=== PATIENT | female | born 1985 | race Caucasian/White ===

== ENCOUNTER 2021-06-12 13:59 | Outpatient (REF) | payer BC, OTHER, SELFPAY ==
[2021-06-12 19:27] LABS: HCT 36.3 % (36.0-46.0); HGB 11.1 g/dL (11.2-15.7); MCH 27.9 pg (27.0-33.0); MCHC 30.6 % (32.0-36.0); MCV 91.2 fL (80-95); MPV 10.1 fL (8.0-11.0); Platelet Count 389 10^3/uL (130-400); RBC 3.98 10^6/uL (3.93-5.22); RDW 16.1 % (11.7-14.6); RDW-SD 53.9 fL; WBC 4.05 10^3/uL (4.4-10.8)
[2021-06-12 20:05] LABS: BUN 12 mg/dL (7-18); CREATININE 0.8 mg/dL (0.55-1.02); Chloride 105 mmol/L (98-107); FREE T4 0.79 ng/dL (0.76-1.46); Glucose 94 mg/dL (74-106); Potassium 4.4 mmol/L (3.5-5.1); Sodium 142 mmol/L (136-145)
== END 2021-06-12 14:00 | disposition home or self-care (01) ==
LOC: NCHCN 13:59
PROVIDERS: Visit Provider Physician Assistant
DX: R53.83 Other fatigue (principal)
CPT/HCPCS: 80048; 85027; 84439; 84443

== ENCOUNTER 2022-06-17 08:39 | Inpatient (IN) | payer OTHER, SELFPAY ==
[2022-06-17] VITALS (16 sets, daily range): BP systolic 110–129; BP diastolic 70–77; PULSE 82–117; RESP 16–28; TEMP 36.2–36.8; O2SAT 86–100
--- NOTE | 2022-06-17 | DI.US_ITS ---
APPROVED REPORT EXAM: Comprehensive 2D, Doppler, and color-flow Echocardiogram Patient Location: ER Land Survey Technician: Farheen Barone RDCS (AE) Indications: Tachycardia, DVT, Suspected PE Other Information Study Quality: Adequate Conclusion Normal left ventricular wall thickness and chamber size. Estimated ejection fraction is 60 to 65%. Wall motion is normal Normal right ventricular size and systolic function Both atria are normal in size There is no structural or hemodynamically significant valvular disease Normal estimated right ventricular systolic pressure, 25.5 mmHg Wall motion Left Ventricle The left ventricle is normal size. The left ventricular systolic function is normal. The left ventric ular ejection fraction is within the normal range. There is normal left ventricular wall thickness. T here is normal LV segmental wall motion. There is no ventricular septal defect visualized. LVEF is 60 -65%. Right Ventricle The right ventricle is normal size. The right ventricular systolic function is normal. The RVSP is 25 .5 mmHg. Atria The left atrium size is normal. The right atrium size is normal. The interatrial septum is intact wit h no evidence for an atrial septal defect. Atrial septal aneurysm is present. Aortic Valve The aortic valve is normal in structure. Aortic valve is trileaflet. There is no aortic valvular sten osis. No aortic regurgitation is present. Mitral Valve The mitral valve is normal in structure. No evidence of mitral valve stenosis. Mild mitral regurgitat ion. Tricuspid Valve The tricuspid valve is normal in structure. There is no tricuspid valve stenosis. Mild tricuspid regu rgitation. Pulmonic Valve The pulmonary valve is normal in structure. There is no pulmonic valvular stenosis. There is no pulmo jeannie valvular regurgitation. Great Vessels The aortic root is normal in size. The ascending aorta is normal in size. Aortic arch is normal in ca liber. IVC is normal in size and collapses >50% with inspiration. Pericardium There is no pericardial effusion. 2D Dimensions IVSD d PLAX 1.02 cm F: 0.6-1.0 LV Vol A2C d MOD 100.0 mL LVPW d PLAX 1.03 cm F: 0.6 - 1.0 LV Vol A4C d MOD 119.5 mL LVID d PLAX 5.00 cm F: 3.8 - 5.2 LA vol/ BSA A2C s A-L 15.0 mL/m2 LVDs 3.40 cm F: 2.2 - 3.5 LA vol/ BSA A4C s A-L 19.4 mL/m2 Ao Root d 2.95 cm F: 2.7 - 3.3 LA Vol/ BSA Biplane s A-L 17.9 mL/m2 RA Area A4C 10.97 cm2 LA Area A4C s MOD 14.86 cm2 RA Vol/ BSA A4C s A-L 12.1 mL/m2 LA Area A2C s MOD 12.45 cm2 Ao Asc Diam d 3.19 cm F: 2.3 - 3.1 LV EF A4C MOD 59.6 % LV EF Teichholz 59.6 % LV EF A2C MOD 65.2 % LVEF (Martínez's) 62.37 % F: 54 - 74 LV EF Biplane MOD 62.4 % LV Volume 81.41 mL F: 46 - 106 SV 68.10 mL LV Volume Index 40.10 mL/m2 F: 29 - 61 SV Index 33.44 mL/m2 LV Vol Biplane MOD 109.2 mL FS 31.80 % M-Mode TAPSE 2.56 cm (M/F) >1.7 LV Diastology MV E' medial 0.098 (>0.07 m/s) E/A Ratio 1.2 LV E/e MED 7.85 (<14) MV E Vmax 0.77 (0.4-1.3 m/s) MV E' lateral 0.143 (>0.1 m/s) MV A Vmax 0.65 (0.4-1.3 m/s) LV E/e LAT 5.35 (<14) MV E/A Ratio 1.17 MV E/E' medial 7.90 MV E/E' lateral 5.38 Aortic Valve LVOT Area 2.98 cm2 AoV Area Vmax 2.32 cm2 LVOT Vmax 1.16 m/s AoV Area/ BSA (Vmax) 1.14 cm2/m2 LVOT Mean Ronny. 0.74 m/s VISH Mean Ronny. 1.97 cm2 LVOT Peak Grad 5.4 mmHg VISH Mean Ronny. Index 0.97 cm2/m2 LVOT Mean Grad 2.6 mmHg LVOT VTI 0.210 m LVOT Diam s 1.90 cm AoV Vmax 1.49 m/s Velocity Ratio 0.77 AoV Mean Ronny. 1.11 m/s AoV Peak Grad 8.9 mmHg LVOT SV 62.43 mL AoV Mean Grad 5.4 mmHg AoV VTI 0.287 m AoV Area VTI 2.18 cm2 AoV Area/ BSA (VTI) 1.07 cm/m2 Mitral Valve MV DT 278 (160-240 msec) MV PHT 81 msec MV Area PHT 2.73 cm2 MV VTI 0.258 m MV Area VTI 2.42 (4.0-6.0 cm2) Pulmonary Valve PV Vmax 0.90 (0.5-1.5 m/s) RVOT Peak Gr. 2.15 mmHg PV Peak Grad 3.3 mmHg RVOT Mean Gr. 1.15 mmHg PV Mean Grad 1.9 mmHg RVOT VTI 0.163 m PV VTI 0.173 m RVOT Vmax 0.73 m/s Tricuspid Valve TR Peak Grad 22.4 mmHg TR Vmax 2.37 m/s RA Pressure 3.00 mmHg RVSP (TR) 25.5 mmHg
--- NOTE | 2022-06-17 09:00 | DI.US_ITS ---
Exam(s) US LOWER EXTREMITY VENOUS LT EXAM: US LOWER EXTREMITY VENOUS LT CLINICAL HISTORY: medial groin pain, hx of DVT TECHNIQUE: Left lower extremity venous ultrasound performed using grayscale, color-flow, and spectra l Doppler analysis. COMPARISON: No exams were available for comparison FINDINGS: Hypoechoic thrombus is seen involving the common femoral vein, femoral vein, popliteal vein, profundu s and into the posterior tibialis veins. The greater saphenous vein is patent. There is no evidence of a Mcelroy cyst. The soft tissues are unremarkable. IMPRESSION: 1. Extensive left lower extremity thrombus extending from the common femoral vein to the posterior ti bialis veins. 2. Results of this exam have been verbally communicated with provider. DATA REPOSITORY:
--- NOTE | 2022-06-17 09:00 | DI.RAD_ITS ---
Exam(s) XR HIP LT COMPLETE AP PELVIS EXAM: XR HIP LT COMPLETE AP PELVIS CLINICAL HISTORY: Chr back pain, Now medial thigh pain. TECHNIQUE: 2D digital imaging was performed of the left hip. Three views were obtained. AP pelvis and lateral left hip views were obtained. COMPARISON: No exams were available for comparison FINDINGS: BONES: No acute fracture is present. No bony destructive lesion is seen. JOINTS: No dislocation present. Postsurgical changes are seen in the lumbar spine and right sacroilia c joint. There are mild degenerative changes seen in the sacroiliac joints bilaterally. SOFT TISSUE: There is an IUD in the pelvis. IMPRESSION: No acute abnormality. DATA REPOSITORY: RADIATION DOSE DELIVERED:
--- NOTE | 2022-06-17 09:06 | ED.GENADUL_ITS ---
Discharge Plan Disposition Patient Disposition: [facility] INPATIENT Condition: Stable Discharge Details Chief Complaint: Vascular Clinical Impression: DVT (deep venous thrombosis) Admit Date/Time: 06/17/22 10:52 Admit Provider: Olimpia Sosa Attending Provider: Olimpia Sosa Primary Care Provider: Unknown,Unknown ED Provider: Satya Stout Medical Decision Making 37-year-old female presents from home with complaint of days of progressive left groin pain. Similar to previous DVT which she had in association with . No chest pain or shortness of breath. She does have longstanding lumbar and SI joint pain for which she follows with pain specialist. Denies any new strain or injury. She is not had a fever, chest pain or shortness of breath. No rash or discoloration. Stress to ER anxious and slightly tachycardic. Oxygenating normally. She is tender throughout the medial thigh. She is tender in her L-spine as well as sciatic notch. With her history of DVT this is certainly within the differential diagnosis as well as SI joint or L-spine or hip pathology. Patient IV access established, given small aliquot of Ativan. Given ketorolac and fluids. She is referred for x-ray, ultrasound, laboratory analysis. Patient's INR is 1.0. Her ultrasound reveals lower extremity thrombus extending from the common femoral to the posterior tibialis veins. Her D-dimer is consistent with this and elevated at 3524. She has a massive DVT with ongoing pain in the leg. I feel she is best served by admission for anticoagulation and observation. Lab Data Lab results reviewed: Yes I reviewed the patient's lab results. Labs: Laboratory Results - last 24 hr 06/17/22 06/17/22 06/17/22 09:09 09:09 09:09 WBC 7.98 RBC 4.03 Hgb 11.4 Hct 35.6 L MCV 88 MCH 28.3 MCHC 32.0 RDW 14.9 H Plt Count 346 MPV 9.2 Immature Gran % 0.4 Neutrophils % 73.8 Lymphocytes % 15.7 Monocytes % 6.3 Eosinophils % 3.3 Basophils % 0.5 Nucleated RBC % 0.0 Absolute Neutrophils 5.90 Absolute Lymphocytes 1.25 Absolute Monocytes 0.50 Absolute Eosinophils 0.26 Absolute Basophils 0.04 PT 10.2 INR 1.0 APTT 23.8 D-Dimer 3524 H Sodium 137 Potassium 3.2 L Chloride 98 Carbon Dioxide 30.9 Anion Gap 8.1 BUN 15 Creatinine 0.9 Estimated GFR/1.73 m2 >= 60.00 Glucose 112 H Calcium 9.0 Magnesium 2.0 Total Bilirubin 0.6 AST 10 L ALT 21 Alkaline Phosphatase 92 Total Protein 8.7 H Albumin 4.1 HPI General Mode of arrival: ambulatory . Date/Time Provider Initiated Documentation: 06/17/22 08:40 . Limitations to Documentation: no limitations . Information obtained by: patient . History of Present Illness 37 year old F presents to the emergency department with the chief complaint of Left groin and thigh pain, described as moderate and similar to prior episodes, Quality is described as dull and constant, and is localized to the left and lower extremity. Patient reports no radiation. Patient started experiencing this day(s) and it has been intermittent. No relieving factors improve symptom(s), Movement worsens symptoms . Patient notes denies chest pain, rash and shortness of breath. Patient did receive the following treatments prior to arrival, other (Took morning medications) Related Data Home Medications Medication Instructions Recorded Confirmed duloxetine 30 mg capsule,delayed 30 mg PO DAILY 06/17/22 06/17/22 release duloxetine 60 mg capsule,delayed 60 mg PO DAILY 06/17/22 06/17/22 release gabapentin 600 mg tablet 600 mg PO QID 06/17/22 06/17/22 oxycodone 20 mg tablet 20 mg PO Q4H PRN 06/17/22 06/17/22 tizanidine 4 mg tablet 4 mg PO Q8H PRN 06/17/22 06/17/22 Allergies Allergy/AdvReac Type Severity Reaction Status Date / Time No Known Allergies Allergy Unverified 06/17/22 08:51 General Stated Complaint: Vascular NARESH: 3 Review of Systems Narrative: 6 systems reviewed and otherwise neg PFSH All Active Problems (Updated 06/17/22 @ 13:57 by Satya Stout MD) DVT (deep venous thrombosis) (Chronic) Social History Smoking/Tobacco Use Status: Never Smoking risk assessment performed?: Yes Alcohol Intake: current Alcohol Intake frequency: a few times a month Drug use: Occasionally Substance use type: marijuana Do you feel safe at home: Yes Do you feel safe in your relationship?: Yes Exam Narrative Exam Narrative: GEN: awake, alert, oriented 3. Pleasant, well groomed, interactive. HEAD: Normocephalic, atraumatic ENT: Mucous membranes moist, oropharynx unremarkable, External ear exam unremarkable EYES: PERRL, EOMI NECK: Full ROM, no ELIF, no menigismus CHEST/RESP: Nontender, clear to auscultation bilateral, no wheeze/rhonchi/rales CARDIOVASCULAR: RRR, no murmur, rub declan. 2+ Rad pulse bilateral ABDOMEN: Soft, nontender, no mass. +Bowel sounds Back: Moderately diffuse L-spine tenderness without step-off or deformity. Left lateral hip tender to palpation. Tenderness throughout the left medial thigh. Palpable femoral pulse. EXT: Full ROM, no edema, no rash. No pain with internal or external rotation of the hip. Neuro: Grossly normal neurologic exam, conversant, interactive. Psych: Speech fluent, thoughts congruent, affect normal Course Vital Signs Vital signs: Vital Signs Temperature 36.7 C 06/17/22 08:44 Pulse 117 H 06/17/22 08:44 Respiratory Rate 17 06/17/22 08:44 Blood Pressure 114/77 06/17/22 08:44 Pulse Oximetry 96 06/17/22 08:44 Temperature 36.7 C 06/17/22 08:44 Temperature Source Temporal Artery Scan 06/17/22 08:44 Pulse 117 H 06/17/22 08:44 Respiratory Rate 17 06/17/22 08:44 Respiratory Effort Non-Labored 06/17/22 08:57 Respiratory Depth Normal 06/17/22 08:57 Respiratory Pattern Normal 06/17/22 08:57 Blood Pressure 114/77 06/17/22 08:44 Blood Pressure Position Sitting 06/17/22 08:44 Pulse Oximetry 96 06/17/22 08:44 Oxygen Delivery Method Room Air 06/17/22 08:44 Oxygen Flow Rate 0 06/17/22 08:44 Pain Level 8 06/17/22 08:57 PAWSS Have you Been Recently Intoxicated or Drunk Within the Last 30 days?: No Have you Ever Experienced Previous Episodes of Alcohol Withdrawal?: No Have you ever Experienced Withdrawal Seizures?: No Have you ever Experienced Delirium Tremens(DT)s?: No Have you ever undergone Alcohol Rehabilitation Treatment (i.e, inpt ot outpatient treatment programs)?: No Have you ever Experienced Blackouts?: No Have you ever Combined Alcohol with other Downers within the last 90 days?: No Have you ever Combined Alcohol with any other Substance of Abuse during the last 90 days?: No Result: 0
[2022-06-17] MEDS: LORazepam 20 MG/10 ML VIAL IVP ×2 (09:13→22:47)
[2022-06-17] MEDS: Ketorolac 15 MG/ML VIAL IVP (09:13)
[2022-06-17] MEDS: Normal Saline 1,000 ML 1000 ML IV (09:14)
[2022-06-17 09:17] LABS: Abs Immature Grans 0.03 10^3/uL (0.0-0.06); Absolute Basophil Count 0.04 10^3/uL (0.0-0.2); Absolute Eosinophil Count 0.26 10^3/uL (0.0-0.7); Absolute Lymphocyte Count 1.25 10^3/uL (1.2-3.4); Basophils % 0.5; Eosinophils % 3.3; HCT 35.6 % (36.0-46.0); HGB 11.4 g/dL (11.2-15.7); Immature Grans % 0.4; Lymphocytes % 15.7; MCH 28.3 pg (27.0-33.0); MCV 88 fL (80-95); MPV 9.2 fL (8.0-11.0); Monocytes % 6.3; Neutrophils % 73.8; Platelet Count 346 10^3/uL (130-400); RBC 4.03 10^6/uL (3.93-5.22); RDW 14.9 % (11.7-14.6); RDW-SD 48.9 fL; WBC 7.98 10^3/uL (4.4-10.8)
[2022-06-17 09:35] LABS: ALT 21 U/L (14-59); AST 10 U/L (15-37); Albumin 4.1 g/dL (3.4-5.0); Alkaline Phosphatase 92 U/L (46-116); Anion Gap 8.1 mmol/L (3-11); BUN 15 mg/dL (7-18); Bilirubin, Total 0.6 mg/dL (0.2-1.0); CO2 30.9 mmol/L (21.0-32.0); CREATININE 0.9 mg/dL (0.55-1.02); Chloride 98 mmol/L (98-107); Glucose 112 mg/dL (74-106); Potassium 3.2 mmol/L (3.5-5.1); Sodium 137 mmol/L (136-145); Total Protein 8.7 g/dL (6.4-8.2)
[2022-06-17 09:42] LABS: PTT Activated 23.8 sec (21.0-27.5); Prothrombin Time 10.2 sec (9.3-11.0)
[2022-06-17 10:00] LABS: D-Dimer 3524 ng/mlFEU (<500)
--- NOTE | 2022-06-17 10:45 | DI.CT_ITS ---
Exam(s) CT CHEST PE CTA EXAM: CT CHEST PE CTA CLINICAL HISTORY: Massive DVT, tachycardia. TECHNIQUE: Imaging Protocol: Axial CT angiography was performed with multi-slice acquisition and mu lti-planar and/or 3D reconstructions. CONTRAST MATERIAL: Intravenous: Omnipaque 350 contrast volume:100 mL COMPARISON: No exams were available for comparison FINDINGS: Tracheobronchial tree: Patent where visualized. Pulmonary parenchyma: No consolidation or dominant measurable mass. Low lung volumes with dependent a telectasis. Pulmonary Arteries: No evidence of filling defect to suggest pulmonary emboli. Mediastinum and [place]: No dominant adenopathy or fluid collection. The esophagus is unremarkable. Visualized thyroid gland: Unremarkable. Pleura: No effusion or pneumothorax. Heart: The heart is not dilated. No coronary artery calcifications are seen. No pericardial effusion. There is no evidence of right heart strain Aorta: Thoracic aorta non-dilated. No evidence of dissection. Upper abdomen: Unremarkable. Soft tissues: Unremarkable. Bones: Within normal limits for the patient's age.There is a right convex curvature of the thoracic s pine. IMPRESSION: 1. No evidence of pulmonary embolism, thoracic aortic dissection or aneurysm. 2. Results of this exam have been verbally communicated with provider. RADIATION DOSE DELIVERED: 456.72mGy.cm Total DLP DATA REPOSITORY: All CT scans at this facility are submitted to the National Radiology Data Registry (NRDR) Dose Index Registry (DIR) with the [employer] (ACR). RADIATION OPTIMIZATION: All CT scans at this facility use at least one of these dose optimization te chniques: automated exposure control; mA and/or kV adjustment per patient size (includes targeted exa ms where dose is matched to clinical indication); or iterative reconstruction.
[2022-06-17] MEDS: Enoxaparin 100 MG/ML SYR SC ×2 (11:01→22:25)
[2022-06-17 11:05] LABS: Source Nasal/Nares
[2022-06-17 11:38] LABS: COVID-19 PCR Negative (Negative)
[2022-06-17 11:42] LABS: NT-proBNP 33 pg/mL (<300); Troponin I < 50 ng/L (<or=60)
[2022-06-17] MEDS: HYDROmorphone 2 MG/ML SYR 1 MG IVP (11:59)
[2022-06-17] MEDS: Omnipaque 350 MG/ML 100 ML BTL IJ (12:12)
[2022-06-17] MEDS: Potassium Chloride 20 MEQ TABCR 40 MEQ PO (13:07)
[2022-06-17] MEDS: Acetaminophen 325 MG TAB PO (13:07)
[2022-06-17 14:54] LABS: Troponin I < 50 ng/L (<or=60)
[2022-06-17] MEDS: Normal Saline Flush 10 ML SYR IVP ×3 (16:01→22:28)
[2022-06-17] MEDS: HYDROmorphone 2 MG/ML SYR IVP ×3 (16:02→22:26)
--- NOTE | 2022-06-17 16:41 | HPE_ITS ---
Date of service: 06/17/22 Time of Service: 16:41 Assessment and Plan Assessment and plan (1) DVT (deep venous thrombosis): Status: Chronic Assessment and plan: Pain, swelling to left leg. No difficulty breathing, no chest pain - enoxaparin (2) Pain: Status: Acute Assessment and plan: Left groin and leg is warm, tender; foot is pink, warm DP/PT palpable. Chronic use of oxycodone - dilaudid IV as needed (3) Anxiety: Status: Chronic Assessment and plan: Very anxious, usually takes xanax prn. Reassured, calm, quiet environment, lorazepam as needed. (4) Chronic back pain greater than 3 months duration: Status: Chronic Assessment and plan: Chronic back pain - sees pain specialists - continue home meds, hold oxy in lieu of dilaudid (5) Constipation due to opioid therapy: Status: Suspected Assessment and plan: On oxycodone for years, denies constipation at this time; bowel meds anderson and as needed. (6) Discharge planning issues: Status: Acute Assessment and plan: Plan to discharge home with no services History of Present Illness History of Present Illness Chief Complaint: Left groin and leg pain Narrative: This 37-year-old female presented to the [facility] emergency department with the chief complaint of 3 days of progressive left groin pain.? She reported this pain is similar to the pain she had with a previous DVT, years ago, in association with .?She denied chest pain or shortness of breath.? She does have longstanding lumbar and SI joint pain for which is followed by a pain specialist.? She denied any new strain or injury.? She has not had a fever, rash or discoloration. In the emergency department she appeared anxious and she was tachycardic, no hypoxia. She reported tenderness throughout the left medial thigh.? She also reported tenderness in her L-spine as well as sciatic notch, which is chronic. She was given Ativan, ketorolac and fluids in the emergency department. Patient's INR was 1.0.? Her ultrasound revealed a left lower extremity thrombus extending from the common femoral to the posterior tibialis veins.? Her D-dimer was 3524.? She has a massive DVT with ongoing pain in the leg.?She is placed on observaiton status on the medical surgical unit for anticoagulation and pain control. Discussed with Dr Sosa Review of Systems All systems reviewed & are unremarkable except as noted in HPI and below PFSH All Active Problems (Updated 06/19/22 @ 16:08 by Candice Leyva NP) Anemia (Chronic) Hypoxia (Acute) Headache (Acute) Chronic back pain greater than 3 months duration (Chronic) Anxiety (Chronic) Discharge planning issues (Acute) Pain (Acute) DVT (deep venous thrombosis) (Chronic) Social History Smoking/Tobacco Use Status: Never Smoking risk assessment performed?: Yes Alcohol Intake: current Alcohol Intake frequency: a few times a month Drug use: Occasionally Substance use type: marijuana Do you feel safe at home: Yes Do you feel safe in your relationship?: Yes Meds Allergies and Home Medications Allergies Allergy/AdvReac Type Severity Reaction Status Date / Time No Known Allergies Allergy Unverified 06/17/22 08:51 Home Medications Medication Instructions Recorded Confirmed Type duloxetine 30 mg capsule,delayed 30 mg PO DAILY 06/17/22 06/17/22 History release duloxetine 60 mg capsule,delayed 60 mg PO DAILY 06/17/22 06/17/22 History release gabapentin 600 mg tablet 600 mg PO QID 06/17/22 06/17/22 History oxycodone 20 mg tablet 20 mg PO Q4H PRN 06/17/22 06/17/22 History tizanidine 4 mg tablet 4 mg PO Q8H PRN 06/17/22 06/17/22 History alprazolam 0.25 mg tablet 0.25 mg PO BID PRN 06/19/22 06/19/22 History oxycodone 10 mg tablet,crush 10 mg PO Q12H 06/19/22 06/19/22 History resistant,extended release 12 hr (OxyContin) Exam Narrative Exam Narrative: Const General: no acute distress Nutritional Appearance: average body habitus [facility] Head: normocephalic Ears: external ears normal and no periauricular adenopathy General nose exam: nasal mucous membranes and turbinates normal Face and sinus: sinuses nontender Mouth: oropharynx normal and moist mucous membranes Teeth and gingiva: dentition normal Eyes General: appearance normal, both eyes and all related structures Pupils: PERRL Neck Neck: normal visual inspection and no lymphadenopathy Chest Chest: normal inspection of the chest Resp Effort & Inspection: normal respiratory effort Auscultation: no rales, no rhonchi and no wheezes Cardio Rate: tachycardic Rhythm: regular rhythm Heart Sounds: S1 normal, S2 normal and no murmurs Pulses: radial pulses present bilaterally GI Inspection: normal to inspection Palpation: soft Skin General skin exam: no rashes or lesions noted Neuro General: patient alert, patient awake and patient oriented x3 Extrem General: no clubbing, cyanosis or edema, left leg swollen, DP and PT palpable, foot warm, pink, dry. Strong poplateal pulse Psych Mental Status: mental status grossly normal, anxious Affect: normal affect Attitude: cooperative Results Labs Result diagrams: 06/20/22 06:20 06/18/22 06:37 Labs: Laboratory Results - last 24 hr 06/17/22 06/17/22 06/17/22 09:09 09:09 09:09 WBC 7.98 RBC 4.03 Hgb 11.4 Hct 35.6 L MCV 88 MCH 28.3 MCHC 32.0 RDW 14.9 H Plt Count 346 MPV 9.2 Immature Gran % 0.4 Neutrophils % 73.8 Lymphocytes % 15.7 Monocytes % 6.3 Eosinophils % 3.3 Basophils % 0.5 Nucleated RBC % 0.0 Absolute Neutrophils 5.90 Absolute Lymphocytes 1.25 Absolute Monocytes 0.50 Absolute Eosinophils 0.26 Absolute Basophils 0.04 PT 10.2 INR 1.0 APTT 23.8 D-Dimer 3524 H Sodium 137 Potassium 3.2 L Chloride 98 Carbon Dioxide 30.9 Anion Gap 8.1 BUN 15 Creatinine 0.9 Estimated GFR/1.73 m2 >= 60.00 Glucose 112 H Calcium 9.0 Magnesium 2.0 Total Bilirubin 0.6 AST 10 L ALT 21 Alkaline Phosphatase 92 Troponin I NT-Pro-B Natriuret Pep Total Protein 8.7 H Albumin 4.1 COVID-19 Source SARS-CoV-2 (PCR) 06/17/22 06/17/22 06/17/22 09:09 10:58 14:28 WBC RBC Hgb Hct MCV MCH MCHC RDW Plt Count MPV Immature Gran % Neutrophils % Lymphocytes % Monocytes % Eosinophils % Basophils % Nucleated RBC % Absolute Neutrophils Absolute Lymphocytes Absolute Monocytes Absolute Eosinophils Absolute Basophils PT INR APTT D-Dimer Sodium Potassium Chloride Carbon Dioxide Anion Gap BUN Creatinine Estimated GFR/1.73 m2 Glucose Calcium Magnesium Total Bilirubin AST ALT Alkaline Phosphatase Troponin I < 50 < 50 NT-Pro-B Natriuret Pep 33 Total Protein Albumin COVID-19 Source Nasal/Nares SARS-CoV-2 (PCR) Negative Last Vital Signs Temp 36.6 C 06/17/22 15:24 Pulse 94 H 06/17/22 15:42 Resp 24 06/17/22 15:24 BP 110/70 06/17/22 15:24 Pulse Ox 99 06/17/22 15:24 PAWSS Have you Been Recently Intoxicated or Drunk Within the Last 30 days?: No Have you Ever Experienced Previous Episodes of Alcohol Withdrawal?: No Have you ever Experienced Withdrawal Seizures?: No Have you ever Experienced Delirium Tremens(DT)s?: No Have you ever undergone Alcohol Rehabilitation Treatment (i.e, inpt ot outpatient treatment programs)?: No Have you ever Experienced Blackouts?: No Have you ever Combined Alcohol with other Downers within the last 90 days?: No Have you ever Combined Alcohol with any other Substance of Abuse during the last 90 days?: No Result: 0
[2022-06-17] MEDS: oxyCODONE 5 mg/Acetaminophen 325 mg TAB 1 TAB PO ×2 (17:24→21:49)
[2022-06-17] MEDS: Ondansetron 4 MG/2 ML VIAL IVP (17:52)
[2022-06-17] MEDS: Gabapentin 600 MG TAB PO ×2 (17:52→19:57)
[2022-06-17 23:27] LABS: Lab Add On Test DONE
[2022-06-18] VITALS (9 sets, daily range): BP systolic 94–110; BP diastolic 64–72; PULSE 77–100; RESP 16–21; TEMP 36–36.8; O2SAT 90–98
[2022-06-18] MEDS: Ondansetron 4 MG/2 ML VIAL IVP ×4 (03:38→18:11)
[2022-06-18] MEDS: HYDROmorphone 2 MG/ML SYR IVP ×6 (03:38→19:59)
[2022-06-18] MEDS: Normal Saline Flush 10 ML SYR IVP ×9 (03:39→21:28)
[2022-06-18] MEDS: LORazepam 20 MG/10 ML VIAL IVP ×3 (03:56→20:06)
[2022-06-18] MEDS: oxyCODONE 5 mg/Acetaminophen 325 mg TAB 1 TAB PO (07:40)
[2022-06-18 08:08] LABS: Abs Immature Grans 0.01 10^3/uL (0.0-0.06); Absolute Basophil Count 0.03 10^3/uL (0.0-0.2); Absolute Eosinophil Count 0.31 10^3/uL (0.0-0.7); Absolute Lymphocyte Count 1.36 10^3/uL (1.2-3.4); Absolute Monocyte Count 0.42 10^3/uL (0.1-0.8); Absolute Neutrophil Count 3.02 10^3/uL (1.2-6.7); Basophils % 0.6; HCT 32.3 % (36.0-46.0); HGB 9.9 g/dL (11.2-15.7); Immature Grans % 0.2; Lymphocytes % 26.4; MCH 27.8 pg (27.0-33.0); MCHC 30.7 % (32.0-36.0); MCV 91 fL (80-95); MPV 9.7 fL (8.0-11.0); Monocytes % 8.2; Neutrophils % 58.6; Platelet Count 314 10^3/uL (130-400); RBC 3.56 10^6/uL (3.93-5.22); RDW 15.1 % (11.7-14.6); RDW-SD 50.4 fL; WBC 5.15 10^3/uL (4.4-10.8)
[2022-06-18 08:31] LABS: Anion Gap 7.9 mmol/L (3-11); BUN 14 mg/dL (7-18); CO2 31.1 mmol/L (21.0-32.0); CREATININE 0.7 mg/dL (0.55-1.02); Calcium 8.6 mg/dL (8.5-10.1); Chloride 101 mmol/L (98-107); Glucose 91 mg/dL (74-106); Magnesium 2.3 mg/dL (1.8-2.4); Potassium 3.5 mmol/L (3.5-5.1); Sodium 140 mmol/L (136-145); TSH (W/Ref FT4) 7.05 uIU/mL (0.36-3.74)
[2022-06-18 08:49] LABS: FREE T4 1.12 ng/dL (0.76-1.46)
[2022-06-18] MEDS: Gabapentin 600 MG TAB PO ×4 (10:52→19:56)
[2022-06-18] MEDS: Docusate Sodium 100 MG CAP PO ×2 (10:52→19:57)
[2022-06-18] MEDS: Enoxaparin 100 MG/ML SYR SC ×2 (10:52→22:19)
[2022-06-18] MEDS: DULoxetine 30 MG CAP 90 MG PO (11:02)
--- NOTE | 2022-06-18 11:21 | INITIAL_ITS ---
- If Service Date Differs Date of service: 06/18/22 Time of Service: 11:21 Care Management Initial Assess REASON FOR HOSPITALIZATION:: acute extensive LLE DVT, PE PAST MEDICAL HISTORY/PAST SURGICAL HISTORY:: All Active Problems. Chronic back pain greater than 3 months duration (Chronic). Anxiety (Chronic). Discharge planning issues (Acute). Pain (Acute). DVT (deep venous thrombosis) (Chronic) PREVIOUS FUNCTIONAL STATUS/SOCIAL/FAMILY SUPPORTS:: Kayleigh lives in [place] with her , . She is indpendent with ADL's at baseline. CURRENT FUNCTIONAL STATUS:: When CM approached Kayleigh's room to visit, her SHOPPING INVESTIGATOR stated that she was not feeling well and did not want to be disturbed, therefore CM did not visit with her. Per provider, she will likely have a new prescription for Eliquis. CM will inquire about copay prior to discharge, and provide a coupon from [employer] if eligible. CM will continue to follow. ADVANCE DIRECTIVES:: Not on file. Has patient been provided with info about the portal/API?: Yes Did the patient sign up for the portal?: No CODE STATUS:: Full Code INSURANCE COVERAGE / FINANCIAL ISSUES:: [facility] CURRENT HOME/COMMUNITY SERVICES/EQUIPMENT:: None. PRIMARY CARE PHYSICIAN:: Unknown POTENTIAL DISCHARGE NEEDS:: PCP attachment for discharge follow up appointment. PATIENT/FAMILY EDUCATION NEEDS:: Review discharge instructions and limitations, discussion of self care needs including ask me three. ANTICIPATED BARRIERS TO DISCHARGE:: None identified. TRANSPORTATION:: Via private vehicle by her spouse. PLAN:: Kayleigh will return home when medically cleared. Her will drive her home via private vehicle. She will follow up with her PCP and discharge plan of care. CM will continue to follow.
--- NOTE | 2022-06-18 17:31 | PGE_ITS ---
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 she now has extensive DVT, will continue lovenox for now. have requested hematology work up results she had at [facility] in [facility], awaiting records. plan is to discharge to home with hematology follow up. ? to continue lovenox or if safe to use DOAC (2) Pain: Status: Acute Assessment and plan: Left groin and leg is warm, tender; foot is pink, warm DP/PT palpable. Chronic use of oxycodone - dilaudid IV as needed (3) Anxiety: Status: Chronic Assessment and plan: Very anxious, usually takes xanax prn. Reassured, calm, quiet environment, lorazepam as needed. (4) Chronic back pain greater than 3 months duration: Status: Chronic Assessment and plan: Chronic back pain - sees pain specialists - continue home meds, hold oxy in lieu of dilaudid (5) Constipation due to opioid therapy: Status: Suspected Assessment and plan: On oxycodone for years, denies constipation at this time; bowel meds anderson and as needed. (6) Discharge planning issues: Status: Acute Assessment and plan: Plan to discharge home with no services discussed with DR Sosa Subjective Subjective Patient reports: no new complaints, still having pain and afebrile Exam Const General: cooperative, comfortable and no acute distress Nutritional Appearance: overweight Orientation: alert, awake and oriented x3 HENCA Head: normal to inspection, normocephalic and atraumatic Mouth: oral mucosae normal Resp Effort & Inspection: normal respiratory effort Auscultation: clear to auscultation bilaterally Cardio Rate: regular rate Rhythm: regular rhythm GI Inspection: normal to inspection Palpation: soft Auscultation: normal bowel sounds Skin General skin exam: no rashes or lesions noted Neuro General: patient alert (sedate but arousable.), patient awake and patient oriented x3 Cognition: normal cognition Speech: speech normal Motor: muscle tone normal throughout Extrem General: normal to inspection, full ROM and edema Laterality: left Objective Last Vital Signs Temp 36.8 C 06/18/22 15:50 Pulse 84 06/18/22 15:50 Resp 16 06/18/22 15:50 BP 103/66 06/18/22 15:50 Pulse Ox 90 L 06/18/22 15:50 Laboratory Results - last 24 hr 06/17/22 06/18/22 06/18/22 09:09 06:37 06:37 WBC 5.15 RBC 3.56 L Hgb 9.9 L Hct 32.3 L MCV 91 MCH 27.8 MCHC 30.7 L RDW 15.1 H Plt Count 314 MPV 9.7 Immature Gran % 0.2 Neutrophils % 58.6 Lymphocytes % 26.4 Monocytes % 8.2 Eosinophils % 6.0 Basophils % 0.6 Nucleated RBC % 0.0 Absolute Neutrophils 3.02 Absolute Lymphocytes 1.36 Absolute Monocytes 0.42 Absolute Eosinophils 0.31 Absolute Basophils 0.03 Sodium 140 Potassium 3.5 Chloride 101 Carbon Dioxide 31.1 Anion Gap 7.9 BUN 14 Creatinine 0.7 Estimated GFR/1.73 m2 >= 60.00 Glucose 91 Calcium 8.6 Magnesium 2.3 TSH 7.05 H Free T4 1.12 Add-On Test Request DONE PAWSS Have you Been Recently Intoxicated or Drunk Within the Last 30 days?: No Have you Ever Experienced Previous Episodes of Alcohol Withdrawal?: No Have you ever Experienced Withdrawal Seizures?: No Have you ever Experienced Delirium Tremens(DT)s?: No Have you ever undergone Alcohol Rehabilitation Treatment (i.e, inpt ot outpatient treatment programs)?: No Have you ever Experienced Blackouts?: No Have you ever Combined Alcohol with other Downers within the last 90 days?: No Have you ever Combined Alcohol with any other Substance of Abuse during the last 90 days?: No Result: 0
[2022-06-18] MEDS: Acetaminophen 325 MG TAB PO (19:05)
[2022-06-18] MEDS: Warfarin 5 MG TAB PO (19:57)
[2022-06-18] MEDS: LORazepam 1 MG TAB PO (21:25)
[2022-06-19] VITALS (9 sets, daily range): BP systolic 103–113; BP diastolic 64–76; PULSE 75–104; RESP 17–19; TEMP 35.9–36.8; O2SAT 91–98
--- NOTE | 2022-06-19 | DI.CT_ITS ---
Exam(s) CT HEAD WO EXAM: CT HEAD WO CLINICAL HISTORY: worst headache ever while on anticoagulation. TECHNIQUE: Imaging Protocol: Axial computed tomography images with coronal and sagittal reformatted images were created and reviewed COMPARISON: No exams were available for comparison FINDINGS: There are no skull fractures nor fluid in the visualized paranasal sinuses. Small post inflammatory retention cysts noted in the posterior wall of the left maxillary sinus. No associated fluid level seen. There is no evidence of intracranial hemorrhage, mass effect, or shift of midline structures. There are no extra-axial fluid collections. The ventricles are not enlarged or shifted and there is no blo od within the ventricular system nor within the basal cisterns. IMPRESSION: No acute intracranial findings on this noninfused CT scan of the brain. RADIATION DOSE DELIVERED: 738.49mGy.cm Total DLP DATA REPOSITORY: All CT scans at this facility are submitted to the National Radiology Data Registry (NRDR) Dose Index Registry (DIR) with the [employer] (A[employer]). RADIATION OPTIMIZATION: All CT scans at this facility use at least one of these dose optimization te chniques: automated exposure control; mA and/or kV adjustment per patient size (includes targeted exa ms where dose is matched to clinical indication); or iterative reconstruction.
--- NOTE | 2022-06-19 | DI.CT_ITS ---
Exam(s) CT CHEST PE CTA EXAM: CT CHEST PE CTA CLINICAL HISTORY: hypoxia. TECHNIQUE: Imaging Protocol: CT angiography of the chest was performed using pulmonary embolus kale col. Multi planar reconstructions were performed. CONTRAST MATERIAL: Intravenous: Omnipaque 350 Contrast volume: 100 cc COMPARISON: CT CT CHEST PE CTA from 06/17/2022 FINDINGS: CHEST: PULMONARY ARTERIES: There are no intraluminal filling defects to suggest acute pulmonary emboli. LUNGS: No evidence of pulmonary infarction and no pleural effusions.. However, there are again noted increased relatively symmetrical markings throughout both lung birch, somewhat ground-glass in appe arance. MEDIASTINUM: There is no hilar nor mediastinal adenopathy. Visualized thyroid unremarkable. CARDIAC: Heart size is upper normal. There is no pericardial effusion.Caliber of the thoracic aorta is within normal limits. There is no significant shift of the interventricular septum. PARTIALLY VISUALIZED UPPERMOST ABDOMEN: No obvious findings OSSEOUS: No significant osseous lesions.. IMPRESSION: 1. No evidence of acute pulmonary emboli. No evidence of pulmonary infarction. 2. Extensive increased markings throughout both lung birch again noted, somewhat ground-glass in reshma earance, not associated with pleural effusions. Correlation with Covid testing recommended. 3. No intrathoracic adenopathy evident. RADIATION DOSE DELIVERED: 379.05mGy.cm Total DLP DATA REPOSITORY: All CT scans at this facility are submitted to the National Radiology Data Registry (NRDR) Dose Index Registry (DIR) with the [employer] (ACR). RADIATION OPTIMIZATION: All CT scans at this facility use at least one of these dose optimization te chniques: automated exposure control; mA and/or kV adjustment per patient size (includes targeted exa ms where dose is matched to clinical indication); or iterative reconstruction.
[2022-06-19] MEDS: Normal Saline Flush 10 ML SYR IVP ×4 (01:51→15:07)
[2022-06-19] MEDS: HYDROmorphone 2 MG/ML SYR IVP ×3 (01:52→08:30)
[2022-06-19] MEDS: Acetaminophen 325 MG TAB PO (04:54)
[2022-06-19 07:20] LABS: Abs Immature Grans 0.01 10^3/uL (0.0-0.06); Absolute Basophil Count 0.04 10^3/uL (0.0-0.2); Absolute Lymphocyte Count 1.19 10^3/uL (1.2-3.4); Absolute Monocyte Count 0.58 10^3/uL (0.1-0.8); Basophils % 0.7; Eosinophils % 6.9; HCT 29.6 % (36.0-46.0); HGB 9.6 g/dL (11.2-15.7); Immature Grans % 0.2; Lymphocytes % 20.4; MCH 28.8 pg (27.0-33.0); MCHC 32.4 % (32.0-36.0); MCV 89 fL (80-95); MPV 9.4 fL (8.0-11.0); Neutrophils % 61.8; Platelet Count 264 10^3/uL (130-400); RBC 3.33 10^6/uL (3.93-5.22); RDW 14.6 % (11.7-14.6); RDW-SD 47.8 fL; WBC 5.82 10^3/uL (4.4-10.8)
[2022-06-19 07:29] LABS: Prothrombin Time 10.1 sec (9.3-11.0)
[2022-06-19] MEDS: Ondansetron 4 MG/2 ML VIAL IVP (08:28)
[2022-06-19] MEDS: Docusate Sodium 100 MG CAP PO ×2 (08:32→20:33)
[2022-06-19] MEDS: Gabapentin 600 MG TAB PO ×3 (08:32→20:33)
[2022-06-19] MEDS: Rizatriptan 10 MG TAB PO (09:43)
[2022-06-19] MEDS: Enoxaparin 100 MG/ML SYR SC ×2 (09:43→22:44)
[2022-06-19] MEDS: Omnipaque 350 MG/ML 100 ML BTL IV (10:43)
[2022-06-19] MEDS: Normal Saline 1,000 ML 1000 ML IV (10:49)
[2022-06-19] MEDS: Methylnaltrexone 12 MG/0.6 ML VIAL SC (10:49)
[2022-06-19] MEDS: Prochlorperazine 10 MG/2 ML VIAL IVP (11:00)
[2022-06-19 11:08] LABS: Iron 27 ug/dL (50-170); Total Iron Binding Capacity 350 ug/dL (250-450); Transferrin Sat 8 % (15-50)
[2022-06-19 11:17] LABS: Folate 6.2 ng/mL (8.6-20.0)
[2022-06-19 11:35] LABS: Vitamin B12 300 pg/mL (193-986)
[2022-06-19 11:38] LABS: Source Nasal/Nares
--- NOTE | 2022-06-19 11:51 | PDOC.CMPRO ---
- If Service Date Differs Date of service: 06/19/22 Time of Service: 11:51 Care Management Progress Note S/O: Kayleigh was sitting up in bed when CM met with her. She reported that she is feeling much better this afternoon than she did earlier. She stated that per provider, she will likely be discharged tomorrow. She stated that she is living off the grid currently in [facility] and is working on gettting on the electric grid. Her and her are living in her aunt's house, which they are renovating slowly while living in it. She reported that she has supportive family in [place] who will assist her if needed. She also stated that her PCP is Dr. Galvan in [place]. She expressed that she is independent and does not anticipate requiring services upon discharge. CM will continue to follow. A: Kayleigh is a 37 year old female admitted to [facility] on 06/17/22 with acute LLE DVT. P: Kayleigh will return home when medically cleared. Her will drive her home via private vehicle. She will follow up with her PCP and discharge plan of care. CM will continue to follow.
[2022-06-19 12:13] LABS: COVID-19 PCR Negative (Negative)
[2022-06-19] MEDS: DULoxetine 30 MG CAP 90 MG PO (15:07)
[2022-06-19] MEDS: Folic Acid 1 MG TAB PO (15:07)
[2022-06-19] MEDS: IRON SUCROSE COMPLEX 300 MG in Normal Saline 250 ML 167 MG IVPB (15:08)
[2022-06-19] MEDS: oxyCODONE 10 MG TAB 20 MG PO ×2 (15:11→20:33)
--- NOTE | 2022-06-19 15:56 | PGE_ITS ---
Date of Service Date of service: 06/19/22 Time of Service: 15:56 Assessment and Plan Assessment and plan (1) Headache: Status: Acute Assessment and plan: CT head with no evidence of bleed or pathology better after apap, maxalt, compazine and fluids. (2) Hypoxia: Status: Acute Assessment and plan: suspected d/t hypoventilation d/t oversedation CTA repeated and negative to PE encourage cough and deep breath and incentive spirometer. wean oxygen as able. will stop IV diluadid and resume home medication stop ativan and resume home alprazolam. continue to closely monitor and adjust meds further if needed. (3) Anemia: Status: Chronic Assessment and plan: H&H stable. will need to continue monitoring while on full anticoagulation iron studies, b12 and folate levels. replete as needed. check stool OB (4) DVT (deep venous thrombosis): Status: Chronic Assessment and plan: discussed [place] with Dr Mack [place] [facility] advises to discharge on coumadin for INR goal 2-3, will continue to bridge with lovenox. she will follow up outpatient with hematology and anticoagulation clinic for coumadin management and duration of treatment (suspect will need intermediate designer anticoagulation) (5) Pain: Status: Acute Assessment and plan: Left groin and leg is warm, tender; foot is pink, warm DP/PT palpable. Chronic use of oxycodone, will resume home dosing (6) Anxiety: Status: Chronic Assessment and plan: will resume home xanax and monitor (7) Chronic back pain greater than 3 months duration: Status: Chronic Assessment and plan: Chronic back pain - sees pain specialists - continue home meds (8) Constipation due to opioid therapy: Status: Suspected Assessment and plan: On oxycodone for years, no BM since Friday so given relistor which was effective. continue to monitor. (9) Discharge planning issues: Status: Acute Assessment and plan: Plan to discharge home with no services discussed with DR Sosa Subjective Subjective Patient reports: no new complaints, voiding w/o difficulty, no bowel movement (since friday), nausea and afebrile; denies tolerating a regular diet or shortness of breath Interval history since last seen: patient sedate, arousable but difficulty maintaining eye contact. now with oxygen requirements. c/o headache not responsive to maxalt and apap. Exam Const General: cooperative, comfortable and no acute distress Nutritional Appearance: overweight Orientation: alert, awake and oriented x3 HENMT Head: normal to inspection, normocephalic and atraumatic Mouth: oral mucosae normal Resp Effort & Inspection: no respiratory distress, not tachypneic, no use of accessory muscles and other (depressed respiratory status, shallow) Auscultation: clear to auscultation bilaterally and diminished lung sounds bilaterally throughout Cardio Rate: regular rate Rhythm: regular rhythm GI Inspection: normal to inspection Palpation: soft Auscultation: normal bowel sounds Skin General skin exam: no rashes or lesions noted Neuro General: patient alert (sedate but arousable.), patient awake and patient oriented x3 Cognition: normal cognition Speech: speech normal Motor: muscle tone normal throughout Extrem General: normal to inspection, full ROM and edema Laterality: left Objective Last Vital Signs Temp 36.5 C 06/19/22 11:15 Pulse 90 06/19/22 11:15 Resp 17 06/19/22 11:15 BP 104/68 06/19/22 11:15 Pulse Ox 91 L 06/19/22 11:15 Laboratory Results - last 24 hr 06/19/22 06/19/22 06/19/22 07:08 07:08 07:08 WBC 5.82 RBC 3.33 L Hgb 9.6 L Hct 29.6 L MCV 89 MCH 28.8 MCHC 32.4 RDW 14.6 Plt Count 264 MPV 9.4 Immature Gran % 0.2 Neutrophils % 61.8 Lymphocytes % 20.4 Monocytes % 10.0 Eosinophils % 6.9 Basophils % 0.7 Nucleated RBC % 0.0 Absolute Neutrophils 3.60 Absolute Lymphocytes 1.19 L Absolute Monocytes 0.58 Absolute Eosinophils 0.40 Absolute Basophils 0.04 PT 10.1 INR 1.0 Iron 27 L TIBC 350 Transferrin % Sat 8 L Vitamin B12 Folate COVID-19 Source SARS-CoV-2 (PCR) 06/19/22 06/19/22 06/19/22 07:08 07:08 11:30 WBC RBC Hgb Hct MCV MCH MCHC RDW Plt Count MPV Immature Gran % Neutrophils % Lymphocytes % Monocytes % Eosinophils % Basophils % Nucleated RBC % Absolute Neutrophils Absolute Lymphocytes Absolute Monocytes Absolute Eosinophils Absolute Basophils PT INR Iron TIBC Transferrin % Sat Vitamin B12 300 Folate 6.2 L COVID-19 Source Nasal/Nares SARS-CoV-2 (PCR) Negative PAWSS Have you Been Recently Intoxicated or Drunk Within the Last 30 days?: No Have you Ever Experienced Previous Episodes of Alcohol Withdrawal?: No Have you ever Experienced Withdrawal Seizures?: No Have you ever Experienced Delirium Tremens(DT)s?: No Have you ever undergone Alcohol Rehabilitation Treatment (i.e, inpt ot outpatient treatment programs)?: No Have you ever Experienced Blackouts?: No Have you ever Combined Alcohol with other Downers within the last 90 days?: No Have you ever Combined Alcohol with any other Substance of Abuse during the last 90 days?: No Result: 0
[2022-06-19] MEDS: Warfarin 5 MG TAB 10 MG PO (20:34)
[2022-06-19] MEDS: oxyCODONE-CR 10 MG TABCR PO (22:44)
[2022-06-19] MEDS: ALPRAZolam 0.25 MG TAB PO (22:44)
[2022-06-20] VITALS (7 sets, daily range): BP systolic 96–102; BP diastolic 62–67; PULSE 74–84; RESP 18–20; TEMP 35.9–36.1; O2SAT 93–98
[2022-06-20] MEDS: oxyCODONE 10 MG TAB 20 MG PO ×2 (06:41→12:10)
[2022-06-20 06:50] LABS: HCT 27.9 % (36.0-46.0); HGB 8.7 g/dL (11.2-15.7); MCH 28.4 pg (27.0-33.0); MCHC 31.2 % (32.0-36.0); MCV 91 fL (80-95); MPV 9.5 fL (8.0-11.0); Platelet Count 253 10^3/uL (130-400); RBC 3.06 10^6/uL (3.93-5.22); RDW 14.6 % (11.7-14.6); RDW-SD 48.2 fL; WBC 4.79 10^3/uL (4.4-10.8)
[2022-06-20 07:04] LABS: INR 1.1 (0.9-1.1); Prothrombin Time 10.6 sec (9.3-11.0)
[2022-06-20] MEDS: DULoxetine 30 MG CAP 90 MG PO (07:32)
[2022-06-20] MEDS: oxyCODONE-CR 10 MG TABCR PO (07:32)
[2022-06-20] MEDS: Docusate Sodium 100 MG CAP PO (07:33)
[2022-06-20] MEDS: Folic Acid 1 MG TAB PO (07:33)
[2022-06-20] MEDS: Gabapentin 600 MG TAB PO ×3 (07:33→15:55)
[2022-06-20] MEDS: Acetaminophen 325 MG TAB PO (09:06)
[2022-06-20] MEDS: Normal Saline Flush 10 ML SYR IVP (09:23)
[2022-06-20] MEDS: Ketorolac 15 MG/ML VIAL IVP (09:23)
--- NOTE | 2022-06-20 09:29 | PDOC.CMPRO ---
- If Service Date Differs Date of service: 06/20/22 Time of Service: 09:29 Care Management Progress Note S/O: Kayleigh was sitting up in bed when CM met with her. A: Kayleigh is a 37 year old female admitted to [facility] on 06/17/22 with acute LLE DVT. P: Kayleigh will return home when medically cleared. Her will drive her home via private vehicle. She will follow up with her PCP and discharge plan of care. CM will continue to follow.
[2022-06-20] MEDS: Enoxaparin 100 MG/ML SYR SC (10:26)
[2022-06-20] MEDS: Diclofenac 1% Gel 100 GM TUBE TP (10:49)
--- NOTE | 2022-06-20 11:14 | DSE_ITS ---
Date of service: 06/20/22 Time of Service: 11:14 DS: Diagnosis Discharge Diagnosis (1) DVT (deep venous thrombosis): Status: Chronic (2) Pain: Status: Acute (3) Anxiety: Status: Chronic (4) Chronic back pain greater than 3 months duration: Status: Chronic (5) Constipation due to opioid therapy: Status: Suspected Discharge Plan Disposition Patient Disposition: HOME Condition: Stable Discharge Details Reason For Visit: Acute Extensive LLE DVT, ?PE Admit Date/Time: 06/17/22 10:52 Admit Provider: Olimpia Sosa Attending Provider: Olimpia Sosa Primary Care Provider: Unknown,Unknown Hospital Course Hospital Course: This 37-year-old female presented to the [facility] emergency department with the chief complaint of 3 days of progressive left groin pain.? She reported this pain is similar to the pain she had with a previous DVT, 17 years ago, in association with .?She denied chest pain or shortness of breath.? She does have longstanding lumbar and SI joint pain for which is followed by a pain specialist.? Her ultrasound revealed a left lower extremity thrombus extending from the common femoral to the posterior tibialis veins.? Her D-dimer was 3524. she was started on lovenox full dose anticoagulation and admitted to med/surg. Her case was discussed with [place] Mack [place] [facility] [place] treatment with coumadin. She will continue to bridge with lovenox until she is therapeutic on her coumadin with INR goal of 2-3. She should follow up outpatient with anticoagulation clinic through [place]ology [place] [facility] and with her pcp. hospital course was complicated with pain control issues and subsequent hypoxia from oversedation. CT scan for PE study was negative. Her IV dilaudid was discontinued and her home pain management regimen resumed with improvement in level of alertness and she was weaned off oxygen. She also experience nausea and vomiting which improved after receiving relistor with effect for opioid induced constipation. ? She has also experienced significant anxiety d/t her living situation being so far away. She also had a severe headache on hospital day [address] of the head was negative for acute bleed or other intracranial pathology. she received maxalt, toradol and compazine with improvement. She was noted to be anemic and was folate and iron deficient. she received venofer IV and discharged on oral iron supplementation. she was also started on folic acid. She should continue coumadin 10 mg daily or as directed based on INR. She will continue lovenox to bridge until her INR therapeutic between 2-3. This will be managed by pcp and hematology. she should continue to seek treatment for her chronic pain syndrome and opioid dependance. discharge discussed with DR Betancourt. Home Meds and New Rx's Prescriptions: New warfarin [Jantoven] 5 mg Tablet 10 mg PO QPM Qty: 60 0RF enoxaparin 100 mg/mL Syringe 100 mg subcut Q12H Qty: 14 0RF folic acid 1 mg Tablet 1 mg PO DAILY Qty: 30 0RF ferrous sulfate 325 mg (65 mg iron) tablet 325 mg PO DAILY Qty: 30 0RF Continued gabapentin 600 mg Tablet 600 mg PO QID tizanidine 4 mg Tablet 4 mg PO Q8H PRN duloxetine 30 mg Capsule,Delayed Release(Dr/Ec) 30 mg PO DAILY duloxetine 60 mg Capsule,Delayed Release(Dr/Ec) 60 mg PO DAILY oxycodone 20 mg Tablet 20 mg PO Q4H PRN alprazolam 0.25 mg Tablet 0.25 mg PO BID PRN oxycodone [OxyContin] 10 mg Tablet,Oral Only,Ext.Rel.12 Hr 10 mg PO Q12H Discharge Instructions Instructions: Deep Vein Thrombosis (DC) Additional Instructions: continue lovenox 100 mg subcutaneously twice daily as directed until INR 2-3 Stand Alone Forms: Nursing Discharge Form Referrals: Vazquez Galvan [ NON-[facility] STAFF PHYSICIAN] - 06/27/22 9:00 am CRISTIAN GARCÍA [ NON-[facility] STAFF PHYSICIAN] - (anticoagulation clinic, A Nurse will call you to make an appointment after the doctor looks at your referral. If you do not get a call in 48h Please call ) Activity:: Activity as Tolerated Equipment/Supplies:: No Equipment Needed Diet:: As Tolerated Discharge Orders Discharge Orders: Discharge Order (Routine); Ordered 06/20/22 Ordered By: Candice Leyva Other Ambulatory Orders: Complete Blood Count w/Diff (Routine) Timeframe: 20220624 Location: None Selected Ordered By: Candice Leyva Prothrombin Time (Routine) Timeframe: 20220622 Location: None Selected Ordered By: Candice Leyva Prothrombin Time (Routine) Timeframe: 20220624 Location: None Selected Ordered By: Candice Leyva Discharge Data Discharge Date/Time-TO BE ENTERED AT DEPARTURE: 06/20/22 16:07 DS: Summary Time Spent with Patient providing and/or coordinating discharge services: Greater than 30 minutes Status at Discharge Functional status at discharge: independent ambulation Overall status at discharge: patient is not back to baseline Mental Status: mental status grossly normal Speech and Movement: speech and movement normal Mood: anxious mood Affect: anxious affect Exam Psych Mental Status: mental status grossly normal Speech and Movement: speech and movement normal Mood: anxious mood Affect: anxious affect DS: Data Vitals/I&O Vitals and I&O: Vital Signs Temperature 36.1 C L 06/20/22 07:54 Temperature Source Tympanic 06/20/22 07:54 Pulse 80 06/20/22 07:54 Pulse Rhythm Regular 06/20/22 08:00 Pulse 82 06/17/22 11:05 Respiratory Rate 18 06/20/22 07:54 Respiratory Effort Short of Breath 06/20/22 08:00 Respiratory Depth Normal 06/20/22 08:00 Respiratory Pattern Normal 06/20/22 08:00 Blood Pressure 96/63 L 06/20/22 07:54 Blood Pressure Mean 86 06/17/22 09:00 Blood Pressure Position Sitting 06/17/22 08:44 Pulse Oximetry 93 06/20/22 09:30 Oxygen Delivery Method Nasal Cannula 06/20/22 09:30 Oxygen Flow Rate 1 06/20/22 09:30 Pain Level 10 06/20/22 10:06 Comment 06/20/22 07:54 Intake & Output 06/19/22 06/19/22 06/20/22 11:59 23:59 11:59 Intake Total 770.5 / 3035.5 2265 / 3035.5 Output Total 500 / 1500 1000 / 1500 Balance 270.5 / 1535.5 1265 / 1535.5 Weight 102.9 kg Intake: IV 50.5 / 1315.5 1265 / 1315.5 Oral 720 / 1720 1000 / 1720 Output: Urine 500 / 1500 1000 / 1500 Other: Urine Color Straw Yellow Yellow Urine Appearance Cloudy Clear Clear Urine Odor Strong Normal Comment voided in toilet per previous shift RN Stool Characteristics Liquid Liquid Brown Brown Voiding Methods Bedside Commode Toilet Toilet Data Completed and Pending Labs on day of discharge: Labs from last 24 hours 06/20/22 06/20/22 06/19/22 06:20 06:20 11:30 WBC 4.79 RBC 3.06 L Hgb 8.7 L Hct 27.9 L MCV 91 MCH 28.4 MCHC 31.2 L RDW 14.6 Plt Count 253 MPV 9.5 PT 10.6 INR 1.1 Iron TIBC Transferrin % Sat Vitamin B12 Folate COVID-19 Source Nasal/Nares SARS-CoV-2 (PCR) Negative 06/19/22 06/19/22 06/19/22 07:08 07:08 07:08 WBC RBC Hgb Hct MCV MCH MCHC RDW Plt Count MPV PT INR Iron 27 L TIBC 350 Transferrin % Sat 8 L Vitamin B12 300 Folate 6.2 L COVID-19 Source SARS-CoV-2 (PCR) PFSH All Active Problems (Updated 06/20/22 @ 12:32 by Candice Leyva NP) Anticoagulated on Coumadin (Acute) Anemia (Chronic) Hypoxia (Acute) Headache (Acute) Chronic back pain greater than 3 months duration (Chronic) Anxiety (Chronic) Discharge planning issues (Acute) Pain (Acute) DVT (deep venous thrombosis) (Chronic) Social History Smoking/Tobacco Use Status: Never Smoking risk assessment performed?: Yes Alcohol Intake: current Alcohol Intake frequency: a few times a month Drug use: Occasionally Substance use type: marijuana Do you feel safe at home: Yes Do you feel safe in your relationship?: Yes
--- NOTE | 2022-06-20 11:34 | PT.INIE ---
Date of service: 06/20/22 Time of Service: 11:34 PT Notes Visit Reasons: Acute Extensive LLE DVT, ?PE Physical Therapy Inpatient Initial Evaluation Date: 06/20/2022 Referring Doctor: Candice Leyva NP PT Orders: PT CONSULT: Eval/treat. Precautions: Fall. Standard. DVT in L LE. Patient Profile/Admitting Diagnosis: Burak is a 37-year-old female who presented to the ED on 06/17/2022 due to worsening left groin pain. Patient is diagnosed with deep venous thrombosis extending from the common femoral vein to the posterior tibialis vein on the left side, hypoxia, anemia, anxiety, chronic back pain of more than 3 months being managed by pain specialists at [facility] [place], and constipation due to opioid therapy (suspected). PMHX: All Active Problems?(Updated 06/19/22 @ 16:08 by Candice Leyva NP) Anemia (Chronic) Hypoxia (Acute) Headache (Acute) Chronic back pain greater than 3 months duration (Chronic) Anxiety (Chronic) Discharge planning issues (Acute) Pain (Acute) DVT (deep venous thrombosis) (Chronic) Social History/Home Situation: Lives with in a new home that is being renovated with 15 steps to enter with a rail on one side. Independent with all activities of daily living but has been made partially disabled due to longstanding low back pain and sacroiliac joint pathology. Uses a walking stick as needed when pain level intensifies. Has a walker but is not able to be used at home due to clutter from renovation. Equipment Owned/DME: Walking stick, FWW Subjective: Anxious about moving. Reports pain in the left groin area but is agreeable to be mobilized off of bed. Nurse Neda provided patient pain medications to assist with movement. Brought up issue about her house being so much cluttered from current renovation making it difficult to use walker inside house. Agreeable to using SPC for easier accessibility at home. Objective: General Observation: Right side-lying in bed, hips and knees bent. Appears mildly distressed, nearly cried due to pain. Mental Status: Alert and oriented as to person, place, time, and purpose. Able to pay attention, focus, and respond appropriately. Pain: 8/10 in L groin area, chronic back pain of 6-7/10 Vital Signs: WNL as closely monitored by nursing staff ROM: Trunk: Allows up to 30 degrees of bending for stand<>sit with pain in L groin reported Right Upper Extremity: Shoulder Flexion WFL. Shoulder abduction WFL. Elbow flexion WFL. Wrist flexion WFL. Functional opening and closing of hand WFL. Left Upper Extremity: Shoulder Flexion WFL. Shoulder abduction WFL. Elbow flexion WFL. Wrist flexion WFL. Functional opening and closing of hand WFL. Right Lower Extremity: Hip flexion WFL. Hip abduction WFL. Knee flexion WFL. Ankle dorsiflexion WFL. Ankle plantarflexion WFL. Left Lower Extremity: Hip flexion WFL. Hip abduction WFL. Knee flexion WFL. Ankle dorsiflexion WFL. Ankle plantarflexion WFL. Strength: Right Upper Extremity: Shoulder flexors 5/5. Shoulder abductors 5/5. Elbow flexors 5/5. Elbow extensors 5/5. Microfilming Document Preparer strong. Left Upper Extremity: Shoulder flexors 5/5. Shoulder abductors 5/5. Elbow flexors 5/5. Elbow extensors 5/5. Microfilming Document Preparer strong. Right Lower Extremity: Hip flexors 4-/5. Hip abductors 4-/5. Knee flexors 4-/5. Knee extensors 4-/5. Ankle dorsiflexors 4-/5. Ankle plantarflexors 4-/5. Left Lower Extremity: Hip flexors 3+/5. Hip abductors 4-/5. Knee flexors 4-/5. Knee extensors 3+/5. Ankle dorsiflexors 4-/5. Ankle plantarflexors 4-/5. Bed Mobility/Transfers: Rolling independent Supine to sit independent Sit to supine independent Sit to stand independent Stand to sit independent Bed to reclining chair independent Reclining chair to bed independent Gait: Tolerated level surface ambulation of 100 feet requiring stand by assist using FWW and another 100 feet using SPC. Radha decreased. Step height on L decreased due to pain. Step length on L decreased due to pain. Pain in groin at 8-9/20. Balance: Static Sitting: Normal Dynamic Sitting: Good Static Standing: Good Dynamic Standing: Fair Special Tests: Mobility Limitations Standardized Measure [facility] AM-PAC 6 clicks Basic Mobility Inpatient Short Form: Raw Score: 18 CMS Score: 47% deficit Informed Consent/Education: Patient was instructed in purpose of PT consult. Assessment: Currently limited by pain in L groin due to DVT superimposed on chronic low back and SI pain. May benefit from outpatient PT to continue to manage low back pain and facilitate return to independent community ambulation. Provided with SPC to offload L hip and reduce pain in L groin during ambulation. Patient presents with clinical signs and symptoms consistent with current/admitting diagnoses that have resulted to mobility limitations, gait instability, generalized weakness, and overall ADL decline as demonstrated by the following impairment level findings: 1. Decreased strength to L LE major muscle groups due to pain 2. Impaired sitting/standing balance 3. Impaired activity tolerance 4. Pain in L groin area and low back 5. Anxiety Impairments are contributing to the following functional limitations: 1. Difficulty with ambulation without assistive device 2. Increased completion time for mobility ADL performance 3. Increased risk for falls 4. Difficulty with managing steps alone safely Patient is assessed as a 21404 moderate complexity based on the following: History: 37-year-old female with past medical history as indicated above Examination: Demonstrable impairment in strength, balance, and mobility level with underlying impairments and functional limitations as exhibited above as well as deficit score of 47% utilizing the [facility] Mobility Inpatient Short Form Presentation: Evolving Decision Makin moderate complexity Goals: PT evaluation and functional mobility training only. Plan of Care/Treatment Plan: PT evaluation and functional mobility training only. DISCHARGE RECOMMENDATIONS: [] Home with no services [] [] Home with services [specify] [X] Home with outpatient PT. Home when medically cleared by hospitalist. Will benefit from outpatient PT services for pain management and core strengthening to gradually regain independent community ambulation with single-point cane. [] SNF for continued rehabilitation [] [] [facility] [] [] SNF versus LTC based on ability to participate and progress [] TREATMENT CODE/TIME: 99492 x 20 minutes, 20863 x 11 minutes beginning at 11:34 AM. Thank you for the opportunity to participate in the care of this patient. Radha Bright PT, DPT, CLT [facility] [place], [place]
[2022-06-20] MEDS: tiZANidine 4 MG TABLET PO (11:44)
--- NOTE | 2022-06-20 17:13 | PDOC.CMDIS ---
- If Service Date Differs Date of service: 06/20/22 Time of Service: 17:13 LACE Index Scoring Tool - Questions: Length of Stay (in days): 3 Acuity (Admit via E.D.?): Yes E.D. Visits: 1 - Answers: Total Score: 7 Risk of Readmission: Low Risk Care Management Discharge Reason for Hospitalization: acute extensive LLE DVT, PE Discharge Plan: Kayleigh will return home when medically cleared. Her will drive her home via private vehicle. She will follow up with her PCP and discharge plan of care. Patient/Family Education Needs: Review discharge instructions and limitations, discussion of self care needs including ask me three.
== END 2022-06-20 16:07 | disposition home or self-care (01) | DRG 301 ==
LOC: ER 09:00 → MS 12:55
PROVIDERS: Nurse Practitioner Acute Care; Admitting Provider Internal Medicine; Emergency Provider Emergency Medicine; Visit Provider Internal Medicine
DX: I82.412 Acute embolism and thrombosis of left femoral vein (principal); I82.432 Acute embolism and thrombosis of left popliteal vein; I82.442 Acute embolism and thrombosis of left tibial vein; F41.9 Anxiety disorder, unspecified; M54.9 Dorsalgia, unspecified; K59.03 Drug induced constipation; T40.2X5A Adverse effect of other opioids, initial encounter; Z79.891 Long term (current) use of opiate analgesic; Z86.718 Personal history of other venous thrombosis and embolism; R00.0 Tachycardia, unspecified; F12.90 Cannabis use, unspecified, uncomplicated; M79.605 Pain in left leg; R51.9 Headache, unspecified; R09.02 Hypoxemia; E53.8 Deficiency of other specified B group vitamins; G89.4 Chronic pain syndrome; D50.9 Iron deficiency anemia, unspecified
CPT/HCPCS: 36415; 71275; 80048; 80053; 81025; 85027; 87635; 96361; 96372; 96374; 96375; 97162; 97530; 99284; 99285; 70450; 73502; 82607; 82746; 83540; 83550; 83735; 83880; 84439; 84443; 84484; 85025; 85379; 85610; 85730; 93306; 93971; 99222; 99233; 99239; J0780; J1170; J1650; J1756; J1885; J2405; J3490

== ENCOUNTER 2022-07-31 14:44 | Emergency (ER) | payer OTHER, SELFPAY ==
[2022-07-31] VITALS (67 sets, daily range): BP systolic 103–144; BP diastolic 58–103; PULSE 74–110; RESP 11–30; TEMP 37.1; O2SAT 92–100
--- NOTE | 2022-07-31 14:45 | RT.EKG_ITS ---
APPROVED REPORT Exam: Resting ECG Reason for Exam: sob Patient Location: E HR:89 bpm ECG Measurements Heart Rate 89 AXIS NC 141 P 62 QRSd 92 QRS 24 QT 354 T 2 QTc 432 Conclusion Sinus rhythm...normal P axis, V-rate 60- 99 Left atrial enlargement...P, P'>60mS, <-0.15mV V1
--- NOTE | 2022-07-31 15:15 | DI.CT_ITS ---
Exam(s) CT CHEST PE CTA EXAM: CT CHEST PE CTA CLINICAL HISTORY: CP/SOB/DVT/TACHY/hemoptysis. TECHNIQUE: Imaging Protocol: Axial CT angiography was performed with multi-slice acquisition and mu lti-planar and/or 3D reconstructions. CONTRAST MATERIAL: Intravenous: Omnipaque 350 Contrast volume:structured data in ml COMPARISON: CT CT CHEST PE CTA from 06/19/2022 FINDINGS: CT angiography of the chest was performed with intravenous infusion of 100 cc of Omnipaque 350. Previously described areas of scattered ground-glass opacity seen in both lungs on prior examination of June 19 have largely resolved, however there is interval development of new areas of consolida tive opacity in the right lower lobe. Findings are consistent with acute pneumonitis.. No pleural e ffusion. Tracheobronchial tree appears intact. No evidence of pulmonary embolic disease. Thoracic aorta is of normal diameter, no thoracic aortic an eurysm or dissection, major branch vessels appear intact. No mediastinal or hilar bulky adenopathy, slight prominence of right hilar nodes noted, presumably re active period. Images obtained through the upper abdomen show unremarkable appearance of the visualized portions of the liver, spleen, pancreas, adrenals, and kidneys. IMPRESSION: The appearance is consistent with a right lower lobe acute pneumonitis. No evidence of pulmonary emb olic disease. RADIATION DOSE DELIVERED: 441.72mGy.cm Total DLP 441.72mGy.cm Total DLP !Error CTDIvol DATA REPOSITORY: All CT scans at this facility are submitted to the National Radiology Data Registry (NRDR) Dose Index Registry (DIR) with the [employer] ([employer]). RADIATION OPTIMIZATION: All CT scans at this facility use at least one of these dose optimization te chniques: automated exposure control; mA and/or kV adjustment per patient size (includes targeted exa ms where dose is matched to clinical indication); or iterative reconstruction.
--- NOTE | 2022-07-31 15:15 | W.ED.GENAD ---
Discharge Plan Disposition Patient Disposition: STILL A PATIENT Condition: Stable Discharge Details Chief Complaint: RespSymp Clinical Impression: Chest pain, Cough Primary Care Provider: Vazquez Galvan ED Provider: Willian Wilson [place] Meds and New Rx's Prescriptions: No Action gabapentin 600 mg Tablet 600 mg PO QID duloxetine 30 mg Capsule,Delayed Release(Dr/Ec) 30 mg PO DAILY duloxetine 60 mg Capsule,Delayed Release(Dr/Ec) 60 mg PO DAILY oxycodone 20 mg Tablet 20 mg PO Q4H PRN alprazolam 0.25 mg Tablet 0.25 mg PO BID PRN warfarin [Jantoven] 5 mg Tablet 10 mg PO QPM Qty: 60 0RF Rx Instructions: as directed. folic acid 1 mg Tablet 1 mg PO DAILY Qty: 30 0RF ferrous sulfate 325 mg (65 mg iron) tablet 325 mg PO DAILY Qty: 30 0RF Medical Decision Making 77-year-old female diagnosed with a left lower extremity DVT, anticoagulated, difficulty controlling her INR, now presenting with weeklong history of right-sided chest pain, dyspnea, cough, hemoptysis. Clinically she is tachycardic at 110. O2 sat 96% on room air. Plan is to initiate cardiac work-up including a CTA of the chest to rule out PE. We will also obtain a COVID. At time of signout to my colleague MEREDITH Fischer, we are initiating IV access and awaiting laboratory values and CTA This documentation was generated using [employer] dictation system, please disregard any oddities of phrase or misspellings. Medical Records Medical records reviewed: Yes I reviewed the patient's medical records. ECG Data Attestation: I personally reviewed and interpreted this ECG (s) as follows: Interpretation: Sinus rhythm, ventricular rate of 89. No STEMI. HPI General Mode of arrival: ambulatory. Date/Time Provider Initiated Documentation: 07/31/22 14:45. Limitations to Documentation: no limitations. Information obtained by: patient. HPI Narrative: This is a 37-year-old female, past medical history of DVT, chronic anticoagulation, difficulty with therapeutic INR, chronic back pain, presenting to the ER for 5-7-day history of cough, right-sided chest pain, shortness of breath, hemoptysis. She denies recent trauma. Denies fever, headache, neck pain, abdominal pain, nausea. Reports at times she coughs so vigorously that it causes her to vomit, no blood in the vomit, only when she coughs. She reports that she continues to have some discomfort in her left lower extremity ever since initial diagnosis of DVT. Patient reports that she is an occasional smoker, maybe 5 cigarettes/week. The right-sided chest pain is made worse with taking a deep breath or coughing Related Data Home Medications Medication Instructions Recorded Confirmed duloxetine 30 mg capsule,delayed 30 mg PO DAILY 06/17/22 07/31/22 release duloxetine 60 mg capsule,delayed 60 mg PO DAILY 06/17/22 07/31/22 release gabapentin 600 mg tablet 600 mg PO QID 06/17/22 07/31/22 oxycodone 20 mg tablet 20 mg PO Q4H PRN 06/17/22 07/31/22 alprazolam 0.25 mg tablet 0.25 mg PO BID PRN 06/19/22 07/31/22 ferrous sulfate 325 mg (65 mg 325 mg PO DAILY #30 tabs 06/20/22 07/31/22 iron) tablet folic acid 1 mg tablet 1 mg PO DAILY #30 tabs 06/20/22 07/31/22 warfarin 5 mg tablet (Jantoven) 10 mg PO QPM #60 tabs 06/20/22 07/31/22 Previous Rx's Medication Instructions Recorded ferrous sulfate 325 mg (65 mg 325 mg PO DAILY #30 tabs 06/20/22 iron) tablet folic acid 1 mg tablet 1 mg PO DAILY #30 tabs 06/20/22 warfarin 5 mg tablet (Jantoven) 10 mg PO QPM #60 tabs 06/20/22 Allergies Allergy/AdvReac Type Severity Reaction Status Date / Time No Known Allergies Allergy Unverified 07/31/22 14:54 General Stated Complaint: RespSymp NARESH: 2 Review of Systems Constitutional Constitutional: Denies fatigue, Denies fever(s), Denies headache(s) and Denies weakness ENT Ears, Nose, Mouth, and Throat: Denies headache(s) and Denies neck pain Cardiovascular Cardiovascular: Reports chest pain and Reports dyspnea Respiratory Respiratory: Reports cough and Reports dyspnea Gastrointestinal Gastrointestinal: Denies abdominal pain, Denies melena, Denies hematochezia, Denies nausea and Reports vomiting Musculoskeletal Musculoskeletal: Denies back pain, Denies neck pain, Denies numbness and Denies tingling Integumentary/Breasts Skin/Breast: Denies rash Neurologic Neurologic: Denies headache(s), Denies numbness, Denies tingling and Denies weakness Endocrine Endocrine: Denies fatigue Hematologic/Lymphatic Hematologic/Lymphatic: Reports easy bleeding PFSH All Active Problems (Updated 07/31/22 @ 15:28 by EDIS Conklin) Chest pain (Acute) Cough (Acute) DVT (deep venous thrombosis) (Chronic) Pain (Acute) Anxiety (Chronic) Chronic back pain greater than 3 months duration (Chronic) Headache (Acute) Hypoxia (Acute) Anemia (Chronic) Anticoagulated on Coumadin (Acute) Social History Smoking/Tobacco Use Status: Never Smoking risk assessment performed?: Yes Alcohol Intake: current Alcohol Intake frequency: a few times a month Drug use: Occasionally Substance use type: marijuana Do you feel safe at home: Yes Do you feel safe in your relationship?: Yes Exam Const General: cooperative, healthy appearing, comfortable and no acute distress Orientation: alert and awake [facility] Head: normal to inspection, normocephalic and atraumatic Face and sinus: normal facial exam Mouth: moist mucous membranes Throat: posterior oropharynx normal Eyes General: appearance normal, both eyes and all related structures Conjunctivae: conjunctivae normal Neck Neck: normal visual inspection, full ROM, no meningeal signs, trachea midline and supple Resp Effort & Inspection: normal respiratory effort, able to speak in complete sentences and cough Auscultation: diminished lung sounds on the right in the lower lung birch and wheezes (Mild, scattered, mostly clear with coughing) Cardio Rate: tachycardic (110) Rhythm: regular rhythm GI Palpation: soft, not firm and nontender Back/Spine/Pelvis Back: back tenderness (Diffuse mild lumbar) Skin General skin exam: no rashes or lesions noted Neuro General: patient alert, patient awake, moves all extremities and no focal motor deficits Cognition: normal cognition Speech: speech normal Gait: normal gait Motor: muscle tone normal throughout Sensory Exam: no sensory deficits noted Extrem General: normal to inspection, full ROM, capillary refill normal, no pedal edema and no calf tenderness Psych Appearance: grossly normal Mental Status: mental status grossly normal Course Vital Signs Vital signs: Vital Signs Pulse 110 H 07/31/22 14:49 Respiratory Rate 20 07/31/22 14:49 Blood Pressure 144/91 H 07/31/22 14:49 Pulse Oximetry 96 07/31/22 14:49 Temperature Source Oral 07/31/22 14:49 Pulse 110 H 07/31/22 14:49 Respiratory Rate 20 07/31/22 14:49 Blood Pressure 144/91 H 07/31/22 14:49 Pulse Oximetry 96 07/31/22 14:49 Oxygen Delivery Method Room Air 07/31/22 14:49 Oxygen Flow Rate 0 07/31/22 14:49 Pain Level 4 07/31/22 14:49
[2022-07-31 15:28] LABS: Abs Immature Grans 0.02 10^3/uL (0.0-0.06); Absolute Basophil Count 0.04 10^3/uL (0.0-0.2); Absolute Eosinophil Count 0.11 10^3/uL (0.0-0.7); Absolute Lymphocyte Count 0.87 10^3/uL (1.2-3.4); Absolute Monocyte Count 0.58 10^3/uL (0.1-0.8); Absolute Neutrophil Count 3.95 10^3/uL (1.2-6.7); Basophils % 0.7; HCT 38.6 % (36.0-46.0); HGB 12.7 g/dL (11.2-15.7); Immature Grans % 0.4; Lymphocytes % 15.6; MCH 29.2 pg (27.0-33.0); MCHC 32.9 % (32.0-36.0); MCV 89 fL (80-95); MPV 9.4 fL (8.0-11.0); Monocytes % 10.4; Neutrophils % 70.9; Platelet Count 313 10^3/uL (130-400); RBC 4.35 10^6/uL (3.93-5.22); RDW 17.2 % (11.7-14.6); RDW-SD 56.6 fL; WBC 5.57 10^3/uL (4.4-10.8)
--- NOTE | 2022-07-31 15:39 | ED.PROG_ITS ---
Date of service: 07/31/22 Time of Service: 15:40 Medical Decision Making Care of patient assumed by EDIS Calvillo. Please see his note for physical exam, HPI, review of systems, and initial ED plan of care. Patient signed out pending labs and CTA imaging for concern of PE versus viral or bacterial pneumon ia. Patient in stable condition. Review of labs show a unremarkable CBC, D-dimer negative at 337, INR is subtherapeutic at 1.6, CMP shows slightly low potassium at 3.4, AST of 9, negative initial troponin, BNP of 27, protein of 8.3 otherwise nondiagnostic, Patient is COVID-positive but will continue with CTA to rule out secondary PE. Review of urinalysis also does show findings to suggest urinary tract infection patient denies any urinary symptoms but does state significantly and persistent dark urine with intermittent irritation. Patient does confirm that she is unvaccinated. Review of CT imaging shows no pulmonary embolism but does show focal bronchopneumonia with surrounding lymphadenopathy. Due to these findings we will plan on placing patient on antibiotic therapy and monoclonal antibodies as allowed. Spoke with [facility] telemetry pharmacist and reviewed patient's standard medications specifically including warfarin and potential different options to treat the localized pneumonia, UTI, and COVID. After discussion patient does qualify for monoclonal antibodies and will treat pneumonia with amoxicillin 3 times daily for 5 days and single dose of fosfomycin in the emergency department. Given potential for amoxicillin to increase INR patient is to follow-up with primary care provider on Friday which she states she already has a appointment for follow-up given her irregular INRs. We will still place patient on follow-up list to ensure that this has. Did discuss with patient that the monoclonal antibodies were EUA medication and discussed risk versus benefit. After discussion patient is agreeable to receiving this medication and she stated no questions after our discussion. Repeat troponin is negative and please see a physician interpretation for full interpretation of EKG but patient is in sinus rhythm with no significant tachycardia. Patient had no adverse reaction to monoclonal antibodies, had no hypoxia on room air, and no worsening of symptoms. Patient states clear understanding to follow-up with primary care provider and to return to the emergency department for new or worsening symptoms. After discussion of diagnosis and plan of care patient has no further needs, questions, or concerns and states clear understanding to return to the emergency department for any worsening symptoms. This documentation was generated using [employer] Technologiesation system, please disregard any oddities of phrase or misspellings. Imaging Data Radiologic Study: Attestation: I personally reviewed and interpreted this imaging study as follows: Imaging: CT Scan Radiologist's impression: FINDINGS: Pulmonary arteries: No filling defects within the pulmonary arteries are identified to suggest pulmonary embolism. Aorta: Unremarkable. No aortic aneurysm. No aortic dissection. Lungs: The prior patchy ground-glass opacities with superimposed mosaic attenuation throughout both lungs has resolved. There is a new focal region of tree-in-bud opacities with clustered nodular branching airspace opacities within the posterolateral aspect of the right lower lobe, with focal airspace opacities measuring up to 1.1 x 1.8 cm, with the entire region measuring up to 3.8 x 5.0 cm, as seen around images 284-382, series 6. Findings are consistent with pneumonia. There is increased mild central peribronchial thickening within the right lower lobe, with a few new regions of minimal mucous plugging within segmental and subsegmental bronchi in this region. Pleural spaces: There are no pleural effusions present. Heart: Heart size is near the upper limits of normal. There is no pericardial effusion.Lymph nodes: There is new mild right infrahilar adenopathy with lymph nodes measuring up to 1.2 cm. There is also a 1.2 cm subcarinal lymph node which measured 0.7 cm prior study. Bones/joints: There is mild thoracic dextroscoliosis centered the T9-10 disc space. No acute fractures are identified. Soft tissues: Unremarkable. IMPRESSION: 1. No pulmonary embolism identified. 2. New region of bronchopneumonia within the right lower lobe. Findings include new focal nodular airspace opacities measuring up to 1.1 x 1.8 cm in this region. Because neoplastic pulmonary nodule cannot be excluded, recommend follow-up PA and lateral chest x-ray or noncontrast chest CT in 3 months to document resolution of these findings. 3. New mild thoracic adenopathy, as described above, likely reactive. Lab Data Lab results reviewed: Yes I reviewed the patient's lab results. Exam Const General: cooperative, no acute distress and not ill appearing Orientation: alert, awake and oriented x3 HENMT General nose exam: external nose normal Face and sinus: normal facial exam Mouth: oral mucosae normal, lip normal, tongue normal and moist mucous membranes Throat: posterior oropharynx normal Resp Effort & Inspection: normal respiratory effort, able to speak in complete sentences and no respiratory distress Neuro General: patient alert, patient awake, patient oriented x3 and moves all extremities Sign Out Sign Out Data: Sign Out Comment: Recent diagnosis of left lower extremity DVT, anticoagulated, known subtherapeutic INR. Now with right-sided chest pain, dyspnea, hemoptysis. Cardiac work-up initiated and obtaining CTA of the chest. Last updated by Willian Wilson PA at 07/31/22 15:29 Discharge Plan Disposition Patient Disposition: HOME Condition: Stable Discharge Details Clinical Impression: COVID, Pneumonia, Subtherapeutic international normalized ratio (INR), UTI (urinary tract infection) Primary Care Provider: Vazquez Galvan ED Provider: Bryan Fischer Home Meds and New Rx's Prescriptions: New benzonatate 200 mg capsule 200 mg PO TID PRN (Reason: cough) Qty: 30 0RF amoxicillin 500 mg tablet 1,000 mg PO TID 5 Days Qty: 30 0RF Continued gabapentin 600 mg Tablet 600 mg PO QID duloxetine 30 mg Capsule,Delayed Release(Dr/Ec) 30 mg PO DAILY duloxetine 60 mg Capsule,Delayed Release(Dr/Ec) 60 mg PO DAILY oxycodone 20 mg Tablet 20 mg PO Q4H PRN alprazolam 0.25 mg Tablet 0.25 mg PO BID PRN warfarin [Jantoven] 5 mg Tablet 10 mg PO QPM Qty: 60 0RF Rx Instructions: as directed. folic acid 1 mg Tablet 1 mg PO DAILY Qty: 30 0RF ferrous sulfate 325 mg (65 mg iron) tablet 325 mg PO DAILY Qty: 30 0RF Discharge Instructions Instructions: Urinary Tract Infection in Women (ED), Pneumonia (ED), COVID-19 (Coronavirus Disease 2019) (ED) Additional Instructions: Please take medications as prescribed and stay well-hydrated and get plenty of rest. If you develop any new or significant worsening of symptoms, further bleeding, difficulty breathing, abnormal bruising, or any further concerns return to the emergency department immediately for reassessment. As discussed the amoxicillin may increase your INR levels so it is very important that you follow-up with your primary care provider for reassessment and to discuss that your levels were continued subtherapeutic at today's check. Referrals: Vazquez Galvan [Primary Care Provider] - 08/02/22 (Please keep your appointment for recheck of your INR and reassessment of your symptoms.) Discharge Data Discharge Date/Time-TO BE ENTERED AT DEPARTURE: 07/31/22 20:53
[2022-07-31 15:45] LABS: Source Nasal/Nares
[2022-07-31 15:49] LABS: INR 1.6 (0.9-1.1); Prothrombin Time 15.5 sec (9.3-11.0)
[2022-07-31 16:02] LABS: ALT 18 U/L (14-59); AST 9 U/L (15-37); Albumin 4.2 g/dL (3.4-5.0); Alkaline Phosphatase 75 U/L (46-116); Anion Gap 9.1 mmol/L (3-11); BUN 11 mg/dL (7-18); Bilirubin, Total 0.2 mg/dL (0.2-1.0); CO2 25.9 mmol/L (21.0-32.0); CREATININE 0.7 mg/dL (0.55-1.02); Calcium 9.1 mg/dL (8.5-10.1); Chloride 101 mmol/L (98-107); Estimated GFR 112.75 (mL/min/1.73m2); Glucose 86 mg/dL (74-106); NT-proBNP 27 pg/mL (<300); Potassium 3.4 mmol/L (3.5-5.1); Sodium 136 mmol/L (136-145); Total Protein 8.3 g/dL (6.4-8.2); Troponin I < 50 ng/L (<or=60)
[2022-07-31 16:15] LABS: D-Dimer 337 ng/mlFEU (<500)
[2022-07-31 16:27] LABS: Bilirubin Negative (Negative); Blood Moderate (Negative); Clarity Cloudy (Clear); Glucose Negative (Negative); Ketones Negative (Negative); Leukocyte Esterase Small (Negative); Nitrite Positive (Negative); Specific Gravity >= 1.030 (1.005-1.025); Urobilinogen 0.2 EU/dL (Up TO 0.2); pH 5.5 (5-8)
[2022-07-31 16:35] LABS: COVID-19 PCR POSITIVE (Negative)
[2022-07-31 17:09] LABS: Bacteria Packed HPF (Negative); C & S Indicated? Yes; Crystals Negative HPF (Negative); Epithelial Cells Moderate HPF (Negative); Mucus Negative (Negative); WBC >50 HPF (0-5)
[2022-07-31] MEDS: Omnipaque 350 MG/ML 100 ML BTL IJ (17:14)
[2022-07-31] MEDS: Normal Saline Flush 10 ML SYR IVP (17:15)
[2022-07-31] MEDS: oxyCODONE 10 MG TAB 20 MG PO (17:44)
--- NOTE | 2022-07-31 18:05 | DI.VRAD_ITS ---
PROCEDURE INFORMATION: Exam: CTA Chest With Contrast Exam date and time: 07/31/2022 4:56 PM Age: 37 years old Clinical indication: Other: Cp/sob/dvt/tachy/hemoptysis TECHNIQUE: Imaging protocol: Computed tomographic angiography of the chest with contrast. 3D rendering (Not supervised by radiologist): MIP and/or 3D reconstructed images were created by the technologist. Radiation optimization: All CT scans at this facility use at least one of these dose optimization techniques: automated exposure control; mA and/or kV adjustment per patient size (includes targeted exams where dose is matched to clinical indication); or iterative reconstruction. Contrast material: 350; Contrast volume: 100 ml; Contrast route: INTRAVENOUS (IV); COMPARISON: CT CHEST PE CTA 06/19/2022 10:26 AM FINDINGS: Pulmonary arteries: No filling defects within the pulmonary arteries are identified to suggest pulmonary embolism. Aorta: Unremarkable. No aortic aneurysm. No aortic dissection. Lungs: The prior patchy ground-glass opacities with superimposed mosaic attenuation throughout both lungs has resolved. There is a new focal region of tree-in-bud opacities with clustered nodular branching airspace opacities within the posterolateral aspect of the right lower lobe, with focal airspace opacities measuring up to 1.1 x 1.8 cm, with the entire region measuring up to 3.8 x 5.0 cm, as seen around images 284-382, series 6. Findings are consistent with pneumonia. There is increased mild central peribronchial thickening within the right lower lobe, with a few new regions of minimal mucous plugging within segmental and subsegmental bronchi in this region. Pleural spaces: There are no pleural effusions present. Heart: Heart size is near the upper limits of normal. There is no pericardial effusion. Lymph nodes: There is new mild right infrahilar adenopathy with lymph nodes measuring up to 1.2 cm. There is also a 1.2 cm subcarinal lymph node which measured 0.7 cm prior study. Bones/joints: There is mild thoracic dextroscoliosis centered the T9-10 disc space. No acute fractures are identified. Soft tissues: Unremarkable. IMPRESSION: 1. No pulmonary embolism identified. 2. New region of bronchopneumonia within the right lower lobe. Findings include new focal nodular airspace opacities measuring up to 1.1 x 1.8 cm in this region. Because neoplastic pulmonary nodule cannot be excluded, recommend follow-up PA and lateral chest x-ray or noncontrast chest CT in 3 months to document resolution of these findings. 3. New mild thoracic adenopathy, as described above, likely reactive. Dictated and Authenticated by: Hernan Sánchez MD. Ordering:JOSE Dorsey MD
--- NOTE | 2022-07-31 18:15 | RT.EKG_ITS ---
APPROVED REPORT Exam: Resting ECG Reason for Exam: Repeat Patient Location: E HR:87 bpm ECG Measurements Heart Rate 87 AXIS FL 157 P 62 QRSd 83 QRS 37 QT 369 T -9 QTc 444 Conclusion Sinus rhythm...normal P axis, V-rate 60- 99 Left atrial enlargement...P, P'>60mS, <-0.15mV V1 Borderline T abnormalities, diffuse leads...T flat/neg. I have reviewed and interpreted ECG and agree with software generated interpretation. Sinus. Normal axis. No STEMI.
--- NOTE | 2022-07-31 19:16 | NUR.NOTE ---
Addendum entered by Nga Benjamin 08/02/22 14:24: Called PCP on 08/02/22, pt has appt today to recheck INR Original Note: Referral requested to PCP per Eric Fischer on Friday for recheck INR due to new med from UTI, pneumonia, COVID. Put the info in the clinical care coordinator's box for follow up assistance.Nursing Note:
[2022-07-31] MEDS: Fosfomycin Tromethamine 3 GM PACKET PO (19:18)
[2022-07-31] MEDS: Amoxicillin 500 MG CAP 1000 MG PO (19:19)
[2022-07-31 19:31] LABS: Troponin I < 50 ng/L (<or=60)
== END 2022-07-31 20:53 | disposition home or self-care (01) ==
PROVIDERS: Physician Assistant; Emergency Provider Nurse Practitioner Family; PCP Family Medicine
DX: U07.1 COVID-19 (principal); J12.82 Pneumonia due to coronavirus disease 2019; N39.0 Urinary tract infection, site not specified; E87.6 Hypokalemia; J18.0 Bronchopneumonia, unspecified organism; I82.4Z2 Acute embolism and thrombosis of unspecified deep veins of left distal lower extremity; R59.0 Localized enlarged lymph nodes; Z79.01 Long term (current) use of anticoagulants
CPT/HCPCS: 71275; 80053; 87077; 87635; 93005; 96365; 96366; 99284; Q0222; 81003; 81015; 83735; 83880; 84484; 85025; 85379; 85610; 85730; 87086; 87186; 93010; 99285; J3490

== ENCOUNTER 2022-10-30 19:19 | Emergency (ER) | payer OTHER, SELFPAY ==
--- NOTE | 2022-10-30 19:30 | DI.RAD_ITS ---
Exam(s) XR WRIST RT COMPLETE EXAM: XR WRIST RT COMPLETE CLINICAL HISTORY: extensor pain wrist. TECHNIQUE: 2D digital imaging was performed. COMPARISON: No exams were available for comparison FINDINGS: 3 views No evidence of fracture, dislocation, nor significant ulnar variance. Scaphoid unremarkable. Scapho lunate distance normal. Bone density normal. No osseous lesions. No degenerative changes. No eros ions. No radiopaque foreign body. IMPRESSION: No significant osseous findings in the wrist. DATA REPOSITORY: RADIATION DOSE DELIVERED:
[2022-10-30 19:31] VITALS: BP 115/68; PULSE 82; RESP 15; TEMP 36.5; O2SAT 99
--- NOTE | 2022-10-30 19:46 | ED.GENADUL_ITS ---
Discharge Plan Disposition Patient Disposition: Home Condition: Improving Discharge Details Clinical Impression: De Quervain's disease (tenosynovitis) Primary Care Provider: Vazquez Galvan ED Provider: Satya Stout Home Meds and New Rx's Prescriptions: New prednisone 50 mg tablet 50 mg PO DAILY 5 Days Qty: 5 0RF Continued gabapentin 600 mg Tablet 600 mg PO QID duloxetine 30 mg Capsule,Delayed Release(Dr/Ec) 30 mg PO DAILY duloxetine 60 mg Capsule,Delayed Release(Dr/Ec) 60 mg PO DAILY alprazolam 0.25 mg Tablet 0.25 mg PO BID PRN folic acid 1 mg Tablet 1 mg PO DAILY Qty: 30 0RF ferrous sulfate 325 mg (65 mg iron) tablet 325 mg PO DAILY Qty: 30 0RF benzonatate 200 mg capsule 200 mg PO TID PRN (Reason: cough) Qty: 30 0RF No Action oxycodone 20 mg Tablet 20 mg PO Q4H PRN warfarin [Jantoven] 5 mg Tablet 10 mg PO QPM Qty: 60 0RF Rx Instructions: as directed. Discharge Instructions Additional Instructions: Your presentation is consistent with treatment for de Quervain's tenosynovitis, inflammation of the tendons that run on the thumb side of the wrist and forearm. Please wear your wrist splint to keep the wrist in a comfortable position. You should wear this at night as well as during the daytime. May remove for bathing or for comfort. We will refer you to orthopedics for follow-up. Referral will be placed tomemmy beckford. The office #[phone]. May take Tylenol as needed for pain, apply ice to the area. Continue your routine medications including Eliquis. Take prednisone as prescribed. Medical Decision Making 37-year-old female referred for cyst to distal right wrist and forearm pain since beginning a large liya project around the holidays. Now pain with grasping and with the use of the right wrist. On exam she has positive Roma tests is consistent with de Quervain's tendinosis. Screening x-ray obtained: No acute findings. Patient placed in wrist splint. We discussed risks and benefits of a trial of oral steroids. We will refer her to orthopedics should she have poor progress and possibly be a candidate for corticosteroid injection. Patient understands home care and follow-up. HPI General Mode of arrival: ambulatory . Date/Time Provider Initiated Documentation: 10/30/22 19:23 . Limitations to Documentation: no limitations . Information obtained by: patient . History of Present Illness 37 year old F presents to the emergency department with the chief complaint of R wrist and forearm pain, described as moderate, Quality is described as dull, and is localized to the upper extremity. Patient reports no radiation. Patient started experiencing this day(s) and it has been constant. Rest improves symptom(s), Movement worsens symptoms . Patient notes denies fever/chills, rash and weakness. Patient did receive the following treatments prior to arrival, none Related Data Home Medications Medication Instructions Recorded Confirmed duloxetine 30 mg capsule,delayed 30 mg PO DAILY 06/17/22 07/31/22 release duloxetine 60 mg capsule,delayed 60 mg PO DAILY 06/17/22 07/31/22 release gabapentin 600 mg tablet 600 mg PO QID 06/17/22 07/31/22 oxycodone 20 mg tablet 20 mg PO Q4H PRN 06/17/22 07/31/22 alprazolam 0.25 mg tablet 0.25 mg PO BID PRN 06/19/22 07/31/22 ferrous sulfate 325 mg (65 mg 325 mg PO DAILY #30 tabs 06/20/22 07/31/22 iron) tablet folic acid 1 mg tablet 1 mg PO DAILY #30 tabs 06/20/22 07/31/22 warfarin 5 mg tablet (Jantoven) 10 mg PO QPM #60 tabs 06/20/22 07/31/22 benzonatate 200 mg capsule 200 mg PO TID PRN cough #30 caps 07/31/22 prednisone 50 mg tablet 50 mg PO DAILY 5 days #5 tabs 10/30/22 Previous Rx's Medication Instructions Recorded ferrous sulfate 325 mg (65 mg 325 mg PO DAILY #30 tabs 06/20/22 iron) tablet folic acid 1 mg tablet 1 mg PO DAILY #30 tabs 06/20/22 warfarin 5 mg tablet (Jantoven) 10 mg PO QPM #60 tabs 06/20/22 benzonatate 200 mg capsule 200 mg PO TID PRN cough #30 caps 07/31/22 prednisone 50 mg tablet 50 mg PO DAILY 5 days #5 tabs 10/30/22 Allergies Allergy/AdvReac Type Severity Reaction Status Date / Time No Known Allergies Allergy Unverified 07/31/22 14:54 General Stated Complaint: GenMedical NARESH: 4 Review of Systems Narrative: 6 systems reviewed and otherwise negative. PFSH All Active Problems (Updated 10/30/22 @ 19:50 by Satya Stout MD) COVID (Acute) De Quervain's disease (tenosynovitis) (Acute) DVT (deep venous thrombosis) (Chronic) Pain (Acute) Anxiety (Chronic) Chronic back pain greater than 3 months duration (Chronic) Headache (Acute) Hypoxia (Acute) Anemia (Chronic) Anticoagulated on Coumadin (Acute) Social History Smoking/Tobacco Use Status: Never Smoking risk assessment performed?: Yes Alcohol Intake: current Alcohol Intake frequency: a few times a month Drug use: Occasionally Substance use type: marijuana Do you feel safe at home: Yes Do you feel safe in your relationship?: Yes Exam Narrative Exam Narrative: GEN: awake, alert, oriented 3. Pleasant, well groomed, interactive. HEAD: Normocephalic, atraumatic EYES: PERRL, EOMI EXT: Full ROM, no edema, no rash. Tenderness overlying the dorsal aspect of the distal forearm. Roma test is positive. Neuro: Grossly normal neurologic exam, conversant, interactive. Psych: Speech fluent, thoughts congruent, affect normal Course Vital Signs Vital signs: Vital Signs Temperature 36.5 C 10/30/22 19:31 Pulse 82 10/30/22 19:31 Respiratory Rate 15 10/30/22 19:31 Blood Pressure 115/68 10/30/22 19:31 Pulse Oximetry 99 10/30/22 19:31 Temperature 36.5 C 10/30/22 19:31 Temperature Source Oral 10/30/22 19:31 Pulse 82 10/30/22 19:31 Respiratory Rate 15 10/30/22 19:31 Blood Pressure 115/68 10/30/22 19:31 Blood Pressure Position Sitting 10/30/22 19:31 Pulse Oximetry 99 10/30/22 19:31 Oxygen Delivery Method Room Air 10/30/22 19:31 Oxygen Flow Rate 0 10/30/22 19:31 Pain Level 9 10/30/22 19:31
[2022-10-30] MEDS: predniSONE 20 MG TAB 60 MG PO (20:22)
--- NOTE | 2022-10-30 20:25 | DI.VRAD_ITS ---
PROCEDURE INFORMATION: Exam: XR Right Wrist Exam date and time: 10/30/2022 7:49 PM Age: 37 years old Clinical indication: Pain; Wrist; Right TECHNIQUE: Imaging protocol: Radiologic exam of the Right wrist. Views: 3 or more views. COMPARISON: No relevant prior studies available. FINDINGS: Bones/joints: Normal. Soft tissues: Normal. IMPRESSION: No acute findings. Dictated and Authenticated by: Ernesto Wallace MD. Ordering:CORRIE Hernadez MD
[2022-10-30 20:42] VITALS: RESP 16
== END 2022-10-30 20:44 | disposition home or self-care (01) ==
PROVIDERS: Emergency Provider Emergency Medicine; PCP Family Medicine
DX: M65.4 Radial styloid tenosynovitis [de Quervain] (principal)
CPT/HCPCS: 29125; 99283; 73110; 99284; J7512

== ENCOUNTER 2023-04-19 15:23 | Emergency (ER) | payer OTHER, SELFPAY ==
[2023-04-19 15:31] VITALS: BP 126/78; PULSE 91; RESP 16; TEMP 36.8; O2SAT 97
--- NOTE | 2023-04-19 15:39 | ED.GENADUL_ITS ---
Discharge Plan Disposition Patient Disposition: Home Condition: Good Discharge Details Clinical Impression: Pain and swelling of left lower extremity Primary Care Provider: Vazquez Galvan ED Provider: Chandler Simmonss and New Rx's Prescriptions: New Eliquis 5 mg tablet 10 mg PO BID Qty: 26 0RF Continued gabapentin 600 mg Tablet 600 mg PO TID duloxetine 60 mg Capsule,Delayed Release(Dr/Ec) 60 mg PO DAILY oxycodone 20 mg Tablet 20 mg PO Q4H PRN Discharge Instructions Additional Instructions: You were seen in the ED for left leg swelling and pain. Your laboratory studies are reassuring with only a mild anemia. Given your history we will begin treatment for DVT. An ultrasound has been ordered for Friday. You should follow-up with your primary care once this has been completed. If positive you will need to continue the Eliquis. If negative you will be able to discontinue. Return to ED for increasing pain, redness, fever, chest pain, shortness of breath. Referrals: Vazquez Galvan [Primary Care Provider] - Medical Decision Making Patient presenting with left lower extremity pain and swelling over the last few days. She has prior history of DVT and is currently not anticoagulated. She has no shortness of breath or chest pain. She has normal vital signs. Most likely recurrent DVT. Ultrasound is not available this weekend. Will check laboratory studies and if no significant abnormalities we will plan on starting Eliquis which she has been on previously. Outpatient ultrasound on Friday to confirm diagnosis. Patient is not . Liver and kidney function normal. Mild anemia, normal platelets. We will begin Eliquis 10 mg p.o. twice daily for 7 days. Ultrasound on Friday and follow-up with PCP. Return precautions provided. Lab Data Lab results reviewed: Yes I reviewed the patient's lab results. HPI General Mode of arrival: ambulatory . Date/Time Provider Initiated Documentation: 04/19/23 15:34 . Limitations to Documentation: no limitations . Information obtained by: patient . HPI Narrative: Patient presenting with left lower extremity swelling and discomfort over the last few days. Initially started with pain and discomfort in the left upper thigh and groin area. Now left lower extremity markedly swollen compared to right. Patient has prior history of DVTs. She is currently not on anticoagulation. She denies any chest pain, shortness of breath. She denies . She denies fever, redness. Related Data Home Medications Medication Instructions Recorded Confirmed duloxetine 60 mg capsule,delayed 60 mg PO DAILY 06/17/22 04/19/23 release gabapentin 600 mg tablet 600 mg PO TID 06/17/22 04/19/23 oxycodone 20 mg tablet 20 mg PO Q4H PRN 06/17/22 04/19/23 apixaban 5 mg tablet (Eliquis) 10 mg PO BID #26 tabs 04/19/23 Previous Rx's Medication Instructions Recorded apixaban 5 mg tablet (Eliquis) 10 mg PO BID #26 tabs 04/19/23 Allergies Allergy/AdvReac Type Severity Reaction Status Date / Time No Known Allergies Allergy Unverified 04/19/23 15:34 General Stated Complaint: Vascular NARESH: 3 Review of Systems Narrative: Per HPI PFSH All Active Problems (Updated 04/19/23 @ 17:10 by Chandler Simmons MD) Pain and swelling of left lower extremity (Acute) COVID (Acute) Pain (Acute) Anxiety (Chronic) Chronic back pain greater than 3 months duration (Chronic) Headache (Acute) Hypoxia (Acute) Anemia (Chronic) Anticoagulated on Coumadin (Acute) Medical History DVT (deep venous thrombosis) Social History Smoking/Tobacco Use Status: Never Smoking risk assessment performed?: Yes Alcohol Intake: current Alcohol Intake frequency: a few times a month Drug use: Occasionally Substance use type: marijuana Do you feel safe at home: Yes Do you feel safe in your relationship?: Yes Exam Narrative Exam Narrative: Const: WDWN female in NAD. HEENT: NC/AT. Normal facial exam. Eyes: Normal conjunctiva and sclera. Neck: Supple. Trachea midline. Lungs: Normal respiratory effort. Cor: RRR. Good DP/PT pulses. Neuro: A+O x 3. Normal speech, mentation, gait. Cranial nerves II - XII grossly intact. No gross motor or sensory deficit. Ext: No C/C. Left lower extremity significantly larger and swollen compared to right. No pitting edema. No erythema or warmth. Skin: Warm and dry without rash. Course Vital Signs Vital signs: Vital Signs Temperature 98.2 F 04/19/23 15:31 Pulse 91 H 04/19/23 15:31 Respiratory Rate 16 04/19/23 15:31 Blood Pressure 126/78 04/19/23 15:31 Pulse Oximetry 97 04/19/23 15:31 Temperature 98.2 F 04/19/23 15:31 Temperature Source Temporal Artery Scan 04/19/23 15:31 Pulse 91 H 04/19/23 15:31 Respiratory Rate 16 04/19/23 15:31 Respiratory Effort Normal 04/19/23 15:33 Blood Pressure 126/78 04/19/23 15:31 Blood Pressure Position Sitting 04/19/23 15:31 Pulse Oximetry 97 04/19/23 15:31 Pain Level 7 04/19/23 15:31 PAWSS Have you Been Recently Intoxicated or Drunk Within the Last 30 days?: No Have you Ever Experienced Previous Episodes of Alcohol Withdrawal?: No Have you ever Experienced Withdrawal Seizures?: No Have you ever Experienced Delirium Tremens(DT)s?: No Have you ever undergone Alcohol Rehabilitation Treatment (i.e, inpt ot outpatient treatment programs)?: No Have you ever Experienced Blackouts?: No Have you ever Combined Alcohol with other Downers within the last 90 days?: No Have you ever Combined Alcohol with any other Substance of Abuse during the last 90 days?: No Result: 0
[2023-04-19 16:17] VITALS: RESP 18
[2023-04-19 16:33] LABS: Abs Immature Grans 0.01 10^3/uL (0.0-0.06); Absolute Basophil Count 0.04 10^3/uL (0.0-0.2); Absolute Eosinophil Count 0.28 10^3/uL (0.0-0.7); Absolute Lymphocyte Count 1.22 10^3/uL (1.2-3.4); Absolute Monocyte Count 0.34 10^3/uL (0.1-0.8); Absolute Neutrophil Count 2.99 10^3/uL (1.2-6.7); Basophils % 0.8; Eosinophils % 5.7; HCT 32.2 % (36.0-46.0); HGB 10.2 g/dL (11.2-15.7); Immature Grans % 0.2; MCH 28.7 pg (27.0-33.0); MCHC 31.7 % (32.0-36.0); MCV 90 fL (80-95); MPV 9.3 fL (8.0-11.0); Neutrophils % 61.3; Platelet Count 321 10^3/uL (130-400); RBC 3.56 10^6/uL (3.93-5.22); RDW-SD 49.6 fL; WBC 4.88 10^3/uL (4.4-10.8)
[2023-04-19 16:41] LABS: ALT 21 U/L (14-59); AST 14 U/L (15-37); Albumin 3.5 g/dL (3.4-5.0); Alkaline Phosphatase 64 U/L (46-116); BUN 11 mg/dL (7-18); Bilirubin, Total 0.3 mg/dL (0.2-1.0); CREATININE 0.8 mg/dL (0.55-1.02); Calcium 8.4 mg/dL (8.5-10.1); Chloride 105 mmol/L (98-107); Estimated GFR 95.46 (mL/min/1.73m2); Glucose 91 mg/dL (74-106); Potassium 3.9 mmol/L (3.5-5.1); Sodium 139 mmol/L (136-145); Total Protein 7.3 g/dL (6.4-8.2)
--- NOTE | 2023-04-19 16:42 | NUR.NOTE ---
Nursing Note: Request for outpatient LLE venous doppler for H/O DVT, LLE pain, swelling. Follow up w/PCP and to be done FridayApril 21
[2023-04-19 16:59] LABS: HCG Qual (Serum) Negative
[2023-04-19] MEDS: Apixaban 5 MG TAB 10 MG PO (17:26)
== END 2023-04-19 17:28 | disposition home or self-care (01) ==
PROVIDERS: Emergency Provider Emergency Medicine; PCP Family Medicine
DX: R22.42 Localized swelling, mass and lump, left lower limb (principal); M79.605 Pain in left leg
CPT/HCPCS: 80053; 99283; 84703; 85025

== ENCOUNTER 2023-04-30 15:18 | Emergency (ER) | payer OTHER, SELFPAY ==
[2023-04-30] VITALS (25 sets, daily range): BP systolic 98–130; BP diastolic 55–84; PULSE 78–119; RESP 17–27; TEMP 37; O2SAT 92–100
--- NOTE | 2023-04-30 15:58 | ED.GENADUL_ITS ---
Discharge Plan Disposition Patient Disposition: Home Condition: Stable Discharge Details Clinical Impression: UTI (urinary tract infection), Nausea vomiting and diarrhea, Hypokalemia Primary Care Provider: Vazquez Galvan ED Provider: Olivia Douglas Home Meds and New Rx's Prescriptions: No Action gabapentin 600 mg Tablet 600 mg PO TID duloxetine 60 mg Capsule,Delayed Release(Dr/Ec) 60 mg PO DAILY oxycodone 20 mg Tablet 20 mg PO Q4H PRN Discharge Instructions Instructions: Urinary Tract Infection in Women (ED), Hypokalemia (ED), Acute Nausea and Vomiting (ED) Additional Instructions: Urinalysis shows possible urinary tract infection. You are placed on care management list to follow-up with urology regarding the recurrent UTIs and the extra renal pelvis. No evidence of appendicitis. Please take the medications as directed. Follow up with primary care provider in 3-5 days. Return to ED sooner if any worsening vomiting unable to keep the medications down, fever or concerns. Increase oral fluids. Stand Alone Forms: Work Release Referrals: Michaelle Boyd DNP [NURSE PRACTITIONER] - 1 week Vazquez Galvan [Primary Care Provider] - 3 days Medical Decision Making 38 year old female presents to the ED with CC of N/V/D x 3 days. Unable to keep anything down or take her medications. She also has RLQ abdominal Pain. PMSHX includes . She is currently on her normal menses. Work-up ordered including CBC CMP, urinalysis and lipase. Differential diagnosis includes not limited to appendicitis, ovarian cyst, muscle strain, bowel obstruction CBC shows no leukocytosis, sodium is 142 potassium is critically low at 2.8 lipase within normal limits. CT abdomen pelvis with contrast ordered. A liter of normal saline and Zofran morphine. CT shows colitis and extrarenal pelvis. No evidence for appendicitis. IV is infusing without difficulty potassium is infusing. Patient is requesting something additional for pain 30 of Toradol ordered IV. Will try p.o. challenge prior to discharging. Patient tolerating p.o. without difficulty no further emesis noted. Urinalysis shows positive nitrites moderate blood 30 protein. 3-5 RBCs. Culture is pending at this time. Patient is currently on her period which could explain the blood. I will place patient on antibiotics due to the nitrites. This text was generated using [employer] system, please disregard any oddities of phrase or misspellings. Medical Records Medical records reviewed: Yes I reviewed the patient's medical records. Imaging Data Radiologic Study: Imaging: CT Scan Radiologist's impression: CR XR HIP LT COMPLETE AP PELVIS 06/17/2022 9:48 AM FINDINGS: Liver: Normal. No mass. Gallbladder and bile ducts: Gallbladder contracted. Pancreas: Normal. No ductal dilation. Spleen: Normal. No splenomegaly. Adrenal glands: Normal. No mass. Kidneys and ureters: Right extrarenal pelvis, anatomic variant. Renal perfusion symmetric. No hydroureter. Stomach and bowel: Allowing for incomplete distention there may be some mild wall thickening of the sigmoid colon, distal descending colon and rectal region. No abnormal bowel dilatation evident. Appendix: No evidence of appendicitis. Intraperitoneal space: Unremarkable. No free air. No significant fluid collection. Vasculature: Unremarkable. No abdominal aortic aneurysm. Lymph nodes: Unremarkable. No enlarged lymph nodes. Urinary bladder: Bladder not well distended. Reproductive: IUD in place. Tampon in place. Low-density left adnexal lesion measures 2.0 cm, probable dominant follicle. Bones/joints: Status post L4-S1 fusion with right SI joint arthrodesis. Soft tissues: Unremarkable. IMPRESSION: Possible mild left colitis versus artifact of incomplete distention. Thank you for allowing us to participate in the care of your patient. Dictated and Authenticated by: Destiney Davalos MD Lab Data Lab results reviewed: Yes I reviewed the patient's lab results. Labs: 04/30/23 18:29 Urine - Reflex from Ua Urine Culture - Pending Laboratory Tests Range/Units 04/30/23 04/30/23 04/30/23 16:00 16:00 18:29 WBC (4.4-10.8) 10^3/uL 7.47 RBC (3.93-5.22) 10^6/uL 4.64 Hgb (11.2-15.7) g/dL 13.1 Hct (36.0-46.0) % 40.0 MCV (80-95) fL 86 MCH (27.0-33.0) pg 28.2 MCHC (32.0-36.0) % 32.8 RDW (11.7-14.6) % 15.4 H Plt Count (130-400) 10^3/uL 479 H MPV (8.0-11.0) fL 9.3 Immature Gran % 0.3 Neutrophils % 68.1 Lymphocytes % 23.8 Monocytes % 6.3 Eosinophils % 0.8 Basophils % 0.7 Nucleated RBC % (0.0-0.3) % 0.0 Absolute Neutrophils (1.2-6.7) 10^3/uL 5.09 Absolute Lymphocytes (1.2-3.4) 10^3/uL 1.78 Absolute Monocytes (0.1-0.8) 10^3/uL 0.47 Absolute Eosinophils (0.0-0.7) 10^3/uL 0.06 Absolute Basophils (0.0-0.2) 10^3/uL 0.05 Sodium (136-145) mmol/L 142 Potassium (3.5-5.1) mmol/L 2.8 L* Chloride (98-107) mmol/L 103 Carbon Dioxide (21.0-32.0) mmol/L 25.4 Anion Gap (3-11) mmol/L 13.6 H BUN (7-18) mg/dL 9 Creatinine (0.55-1.02) mg/dL 0.8 Est GFR (CKD-EPI 2020) (mL/min/1.73m2) 95.46 Glucose (74-106) mg/dL 113 H Calcium (8.5-10.1) mg/dL 9.5 Magnesium (1.8-2.4) mg/dL 2.0 Total Bilirubin (0.2-1.0) mg/dL 0.5 AST (15-37) U/L 13 L ALT (14-59) U/L 15 Alkaline Phosphatase (46-116) U/L 81 Total Protein (6.4-8.2) g/dL 9.1 H Albumin (3.4-5.0) g/dL 4.5 Lipase (16-77) U/L 55 Urine Color (Yellow) Yellow Urine Clarity (Clear) Sl Cloudy Urine pH (5-8) 6.0 Ur Specific [place] (1.005-1.025) 1.010 Urine Protein (Negative) mg/dL 30 H Urine Ketones (Negative) mg/dL Negative Urine Blood (Negative) Moderate H Urine Nitrite (Negative) Positive H Urine Bilirubin (Negative) Negative Urine Urobilinogen (Up to 0.2) mg/dL 0.2 Ur Leukocyte Esterase (Negative) Negative Urine RBC (0-2) HPF 3-5 H Urine WBC (0-5) HPF 5-10 Ur Epithelial Cells (Negative) HPF Few Urine Crystals (Negative) HPF Negative Urine Bacteria (Negative) HPF Moderate Urine Casts (Negative) LPF Negative Urine Mucus (Negative) Negative Ur Culture Indicated? Yes Urine Glucose (Negative) mg/dL Negative HPI General Mode of arrival: ambulatory . Date/Time Provider Initiated Documentation: 04/30/23 15:37 . Limitations to Documentation: no limitations . Information obtained by: patient, family, RN notes reviewed and old records reviewed . HPI Narrative: 38 year old female presents to the ED with CC of N/V/D x 3 days. Unable to keep anything down or take her medications. She also has RLQ abdominal Pain. PMSHX includes . She is currently on her normal menses. Related Data Home Medications Medication Instructions Recorded Confirmed duloxetine 60 mg capsule,delayed 60 mg PO DAILY 06/17/22 04/30/23 release gabapentin 600 mg tablet 600 mg PO TID 06/17/22 04/30/23 oxycodone 20 mg tablet 20 mg PO Q4H PRN 06/17/22 04/30/23 Allergies Allergy/AdvReac Type Severity Reaction Status Date / Time No Known Allergies Allergy Unverified 04/30/23 15:35 General Stated Complaint: Nausea/Vomit/Diar NARESH: 3 Review of Systems All systems reviewed & are unremarkable except as noted in HPI and below Gastrointestinal Gastrointestinal: Reports abdominal pain, Reports diarrhea, Reports nausea and Reports vomiting PFS All Active Problems (Updated 04/30/23 @ 18:55 by Olivia Douglas NP) Pain and swelling of left lower extremity (Acute) UTI (urinary tract infection) (Acute) Nausea vomiting and diarrhea (Acute) Hypokalemia (Acute) COVID (Acute) Pain (Acute) Anxiety (Chronic) Chronic back pain greater than 3 months duration (Chronic) Headache (Acute) Hypoxia (Acute) Anemia (Chronic) Anticoagulated on Coumadin (Acute) Medical History DVT (deep venous thrombosis) Social History Smoking/Tobacco Use Status: Never Smoking risk assessment performed?: Yes Alcohol Intake: current Alcohol Intake frequency: a few times a month Drug use: Occasionally Substance use type: marijuana Do you feel safe at home: Yes Do you feel safe in your relationship?: Yes Exam Narrative Exam Narrative: Constitutional: Alert and oriented x3. Appears stated age. Normal body habitus. Head: Normocephalic, no trauma. Eyes: Pupils PERRL, Red reflex noted, EOM's intact. Eyelids symmetrical without lesions, discharge, or swelling. ENT: Bilateral TM's WNL, External ear normal to inspection, no mastoid TTP, swelling, or erythema, Nasal turbinates WNL, no nasal discharge. Normal denti tion, Posterior pharynx WNL, no exudate. Chest: RRR, Normal S1, S2, distal pulses intact. Resp: Lungs clear to auscultation bilaterally, no wheezes, rales, or rhonchi. Abdomen: Soft, non-distended, Normoactive bowel sounds all 4 quads. Tenderness with palpation right lower quadrant. Musculoskeletal: Normal gait, 5/5 strength to all four extremities. Skin: No suspicious rashes or lesions. Capillary refill less than 2 sec. Neurologic: Cranial nerves II-XII intact. Alert and oriented x 3. Motor: No deficits noted. Sensory: Intact bilaterally all 4 extremities. Reflexes: DTR's intact bilaterally.. Hematologic/Lymphatic: No ecchymosis, no lymphadenopathy. Course Vital Signs Vital signs: Vital Signs Temperature 37.0 C 04/30/23 15:32 Pulse 119 H 04/30/23 15:32 Respiratory Rate 20 04/30/23 15:32 Blood Pressure 122/84 04/30/23 15:32 Pulse Oximetry 99 04/30/23 15:32 Temperature 37.0 C 04/30/23 15:32 Pulse 119 H 04/30/23 15:32 Respiratory Rate 20 04/30/23 15:32 Respiratory Effort Normal 04/30/23 15:38 Blood Pressure 122/84 04/30/23 15:32 Blood Pressure Position Sitting 04/30/23 15:32 Pulse Oximetry 99 04/30/23 15:32 Oxygen Delivery Method Room Air 04/30/23 15:32 Oxygen Flow Rate 0 04/30/23 15:32 Pain Level 5 04/30/23 15:32
--- NOTE | 2023-04-30 16:00 | DI.CT_ITS ---
Exam(s) CT ABDOMEN PELVIS W EXAM: CT ABDOMEN PELVIS W CLINICAL HISTORY: RLQ abd Pain. TECHNIQUE: Imaging Protocol: Axial computed tomography images with coronal and sagittal reformatted images were created and reviewed CONTRAST MATERIAL: Intravenous: Omnipaque 350 Contrast volume:100 ml Oral: / no COMPARISON: CT CT CHEST PE CTA from 06/17/[address] CHEST PE CTA from 06/19/[address] CHEST PE CTA from 07/31/2022 FINDINGS: ABDOMEN: Lung Bases: Normal where visualized. Liver: Normal density. No measurable mass. Gallbladder and biliary tract: No radiodense calculus or dilation. Pancreas: Normal density, no abnormal calcifications or inflammatory process. Spleen: Normal. Kidneys: Normal size, contour and axis. No radiodense stones or obstructive uropathy. No suspicious m asses seen. Prominent right extrarenal pelvis. Adrenal glands: No masses seen. Abdominal Aorta: Abdominal portion non-dilated. Soft tissues: Unremarkable. PELVIS: Bladder: Not well distended. No gross wall thickening. No calculi.No focal mass. Bowel: No obstruction. No bowel wall thickening. Appendix not definitely seen. No right lower quad rant inflammation. Peritoneal cavity: No ascites, collection or mesenteric inflammatory response. Bones: Hardware lumbosacral spine and right pelvis. Reproductive organs: Within normal limits. IUD. Lymph nodes: Unremarkable. Impression: No acute abnormality of the abdomen and pelvis. RADIATION DOSE DELIVERED: 1,090.86mGy.cm Total DLP DATA REPOSITORY: All CT scans at this facility are submitted to the National Radiology Data Registry (NRDR) Dose Index Registry (DIR) with the [employer] ([employer]). RADIATION OPTIMIZATION: All CT scans at this facility use at least one of these dose optimization te chniques: automated exposure control; mA and/or kV adjustment per patient size (includes targeted exa ms where dose is matched to clinical indication); or iterative reconstruction.
[2023-04-30] MEDS: Ondansetron 4 MG/2 ML VIAL IVP ×2 (16:01→17:18)
[2023-04-30] MEDS: Normal Saline 1,000 ML 1000 ML IV (16:03)
[2023-04-30] MEDS: MORPHine 4 MG/ML SYR IVP (16:08)
[2023-04-30 16:11] LABS: Abs Immature Grans 0.02 10^3/uL (0.0-0.06); Absolute Basophil Count 0.05 10^3/uL (0.0-0.2); Absolute Eosinophil Count 0.06 10^3/uL (0.0-0.7); Absolute Lymphocyte Count 1.78 10^3/uL (1.2-3.4); Absolute Monocyte Count 0.47 10^3/uL (0.1-0.8); Absolute Neutrophil Count 5.09 10^3/uL (1.2-6.7); Basophils % 0.7; Eosinophils % 0.8; HGB 13.1 g/dL (11.2-15.7); Immature Grans % 0.3; Lymphocytes % 23.8; MCH 28.2 pg (27.0-33.0); MCHC 32.8 % (32.0-36.0); MCV 86 fL (80-95); MPV 9.3 fL (8.0-11.0); Monocytes % 6.3; Neutrophils % 68.1; Platelet Count 479 10^3/uL (130-400); RBC 4.64 10^6/uL (3.93-5.22); RDW 15.4 % (11.7-14.6); RDW-SD 48.6 fL; WBC 7.47 10^3/uL (4.4-10.8)
[2023-04-30 16:21] LABS: ALT 15 U/L (14-59); AST 13 U/L (15-37); Albumin 4.5 g/dL (3.4-5.0); Alkaline Phosphatase 81 U/L (46-116); Anion Gap 13.6 mmol/L (3-11); BUN 9 mg/dL (7-18); Bilirubin, Total 0.5 mg/dL (0.2-1.0); CO2 25.4 mmol/L (21.0-32.0); CREATININE 0.8 mg/dL (0.55-1.02); Calcium 9.5 mg/dL (8.5-10.1); Chloride 103 mmol/L (98-107); Estimated GFR 95.46 (mL/min/1.73m2); Glucose 113 mg/dL (74-106); Lipase 55 U/L (16-77); Sodium 142 mmol/L (136-145); Total Protein 9.1 g/dL (6.4-8.2)
[2023-04-30 16:22] LABS: Potassium 2.8 mmol/L (3.5-5.1)
[2023-04-30] MEDS: Normal Saline - Diluent 50 ML VIAL IJ (16:36)
[2023-04-30] MEDS: Omnipaque 350 MG/ML 100 ML BTL IJ (16:38)
[2023-04-30] MEDS: Normal Saline Flush 10 ML SYR IVP (16:39)
--- NOTE | 2023-04-30 17:18 | DI.VRAD_ITS ---
PROCEDURE INFORMATION: Exam: CT Abdomen And Pelvis With Contrast Exam date and time: 04/30/2023 4:54 PM Age: 38 years old Clinical indication: Abdominal pain; Localized; Right lower quadrant (rlq); Patient HX: Rlq abd pain TECHNIQUE: Imaging protocol: Computed tomography of the abdomen and pelvis with contrast. Contrast material: OMNIPAQUE 350; Contrast volume: 100 ml; Contrast route: INTRAVENOUS (IV); COMPARISON: CR XR HIP LT COMPLETE AP PELVIS 06/17/2022 9:48 AM FINDINGS: Liver: Normal. No mass. Gallbladder and bile ducts: Gallbladder contracted. Pancreas: Normal. No ductal dilation. Spleen: Normal. No splenomegaly. Adrenal glands: Normal. No mass. Kidneys and ureters: Right extrarenal pelvis, anatomic variant. Renal perfusion symmetric. No hydroureter. Stomach and bowel: Allowing for incomplete distention there may be some mild wall thickening of the sigmoid colon, distal descending colon and rectal region. No abnormal bowel dilatation evident. Appendix: No evidence of appendicitis. Intraperitoneal space: Unremarkable. No free air. No significant fluid collection. Vasculature: Unremarkable. No abdominal aortic aneurysm. Lymph nodes: Unremarkable. No enlarged lymph nodes. Urinary bladder: Bladder not well distended. Reproductive: IUD in place. Tampon in place. Low-density left adnexal lesion measures 2.0 cm, probable dominant follicle. Bones/joints: Status post L4-S1 fusion with right SI joint arthrodesis. Soft tissues: Unremarkable. IMPRESSION: Possible mild left colitis versus artifact of incomplete distention. Dictated and Authenticated by: Destiney Davalos MD. Ordering:ZOILA Baker MD
[2023-04-30] MEDS: POTASSIUM CHLORIDE 10 MEQ/100 ML BAG 100 MEQ IVPB (17:22)
[2023-04-30] MEDS: Ketorolac 30 MG/ML VIAL IVP (17:56)
[2023-04-30 18:33] LABS: Bilirubin Negative (Negative); Blood Moderate (Negative); Clarity Sl Cloudy (Clear); Glucose Negative (Negative); Ketones Negative (Negative); Leukocyte Esterase Negative (Negative); Nitrite Positive (Negative); Urobilinogen 0.2 mg/dL (Up to 0.2)
[2023-04-30 18:36] LABS: Bacteria Moderate HPF (Negative); Crystals Negative HPF (Negative); Epithelial Cells Few HPF (Negative); Mucus Negative (Negative)
[2023-04-30 18:37] LABS: C & S Indicated? Yes; Casts Negative LPF (Negative)
--- NOTE | 2023-04-30 18:42 | NUR.NOTE ---
Nursing Note:referral faxed to uro
[2023-04-30] MEDS: Cephalexin 500 MG CAP, 2 CAPS/BTL PO (18:55)
[2023-04-30] MEDS: Ondansetron O.D.T. 4 MG TABEF, 3 TABS/BTL PO (18:56)
[2023-04-30] MEDS: Cephalexin 500 MG CAP PO (18:56)
== END 2023-04-30 19:03 | disposition home or self-care (01) ==
PROVIDERS: Emergency Provider Registered Nurse Emergency; PCP Family Medicine
DX: N39.0 Urinary tract infection, site not specified (principal); R11.2 Nausea with vomiting, unspecified; R19.7 Diarrhea, unspecified; E87.6 Hypokalemia; R10.31 Right lower quadrant pain
CPT/HCPCS: 80053; 81025; 83690; 87077; 96361; 96365; 96375; 96376; 99285; 74177; 81003; 81015; 83735; 85025; 87086; 87186; 99284; J1885; J2270; J2405; J3480; J3490

== ENCOUNTER 2023-12-01 16:18 | Emergency (ER) | payer OTHER, SELFPAY ==
[2023-12-01] VITALS (16 sets, daily range): BP systolic 120–166; BP diastolic 67–101; PULSE 80–105; RESP 16–18; TEMP 36.8; O2SAT 96–99
--- NOTE | 2023-12-01 16:36 | ED.GENADUL_ITS ---
HPI General Date/Time Provider Initiated Documentation: 12/01/23 16:35 . HPI Narrative: 38 year-old female presents to ED today by POV/ambulating with a chief complaint of severe R groin pain and pressure with onset for the past few days, worsening. History of DVT in groin, not anticoagulated. Quality described as sharp pain and pressure in the R groin and suprapubic area, no radiation to fever, dysuria, vaginal bleeding, vomiting, upper abdominal pain, recent URI, leg swelling, numbness/tingling distally. Severity is described as 9/10. Palliating factors include OTC analgesics without relief. Provoking factors include nothing specific. Events leading up to the incident/Associated Symptoms: Patient denies known history of ovarian cysts, denies known kidney stone history, endorses history of pyelonephritis. LMP 2 weeks ago. Related Data Home Medications Medication Instructions Recorded Confirmed duloxetine 60 mg capsule,delayed 60 mg PO DAILY 06/17/22 12/01/23 release gabapentin 600 mg tablet 600 mg PO TID 06/17/22 12/01/23 oxycodone 20 mg tablet 20 mg PO Q4H PRN 06/17/22 12/01/23 Allergies Allergy/AdvReac Type Severity Reaction Status Date / Time No Known Allergies Allergy Unverified 12/01/23 16:36 General Stated Complaint: GenMedical NARESH: 3 Review of Systems All systems reviewed & are unremarkable except as noted in HPI and below Exam Narrative Exam Narrative: GENERAL APPEARANCE: Well-nourished, non-toxic, awake and alert, atraumatic, no acute distress. SKIN: Warm, pink, dry, intact, without rashes/lesions/ulcerations. HEAD: Normocephalic, atraumatic, normal hair distribution for gender/age. EYES: Pupils PERRLA, EOMs intact without nystagmus, normal conjunctiva, no exudates on lids/lashes. ENT: Nares patent, no circumoral cyanosis, no facial swelling NECK: Supple, trachea midline, painless cervical ROM. LUNGS/CHEST: Lungs CTA bilaterally- no rhonchi/rales/wheezes diffusely, non- labored respirations, normal A/P diameter, symmetrical expansion, no chest wall deformity HEART (CV/PV): Regular rate and rhythm without murmur, no peripheral edema, no JVD. ABDOMEN: Soft, non-distended, no guarding, TTP at McBurney's point and lower and medially, L CVA tenderness, tenderness is exquisite. MSK: Normal ROM, no swelling/deformity to bilateral UEs or LEs, moving all extremities without weakness, no cyanosis, spine midline without tenderness, normal curvature, no unilateral leg swelling, Michelle's negative bilaterally, no medial thigh tenderness NEURO: Mental Status AAOx4 - alert to person, place, time, events No facial droop, no forehead involvement. Motor: No focal weakness - strength 5/5 in bilateral UEs and LEs, proximal and distal, symmetric. Sensory: sensation intact to light touch globally. Gait normal: patient ambulated without ataxia into ED room. PSYCH: euthymic, cooperative, pleasant, appropriate speech Course Vital Signs Vital signs: Vital Signs Temperature 36.8 C 12/01/23 16:28 Pulse 105 H 12/01/23 16:28 Respiratory Rate 18 12/01/23 16:28 Blood Pressure 160/101 H 12/01/23 16:28 Pulse Oximetry 99 12/01/23 16:28 Temperature 36.8 C 12/01/23 16:28 Temperature Source Oral 12/01/23 16:28 Pulse 105 H 12/01/23 16:28 Respiratory Rate 18 12/01/23 16:28 Blood Pressure 160/101 H 12/01/23 16:28 Blood Pressure Position Supine 12/01/23 16:28 Pulse Oximetry 99 12/01/23 16:28 Oxygen Delivery Method Room Air 12/01/23 16:28 Oxygen Flow Rate 0 12/01/23 16:28 Medical Decision Making This dictation utilizes [id number] dictation software and may contain unedited grammatical errors. 38 y/o F presents to ED today with a chief complaint of severe R groin pain, worsening over the past few days, history of DVT in groin area, denies fever, denies dysuria/vaginal bleeding, LMP 2 weeks ago, endorses history of pyelonephritis. Patient has no complaints in lower extremities- but states didn't have LE symptoms with her prior groin DVT. Patients' medical history: chronic back pain, history of DVT in remote past not anticoagulated- denies history of ovarian cysts. Family and social history: noncontributory. Pertinent exam findings / vital signs include RLQ / suprapubic exquisite tenderness, benign exam of bilateral LEs, mild L CVA tenderness to percussion, mild tachycardia. Differential / pathologies of concern include TOA, ectopic , appendicitis, DVT, UTI, pyelonephritis, ureteral stone. Diagnostic studies of: -CBC, CMP, Lactate, Lipase, UA, POC Urine Preg, Procalcitonin, D-dimer, CRP/ESR. -CBC no leukocytosis -CMP shows no acute abnormality -Lipase wnl -Lactate neg -D-dimer mild elev -preg neg -procalcitonin negative -CRP/ESR equivocal -CT shows no clot in vasculature, spoke with Dr. Padgett of [facility], shows congenital known renal abnormalities, and R ovarian cyst of unconcerning size for torsion, neg lactate do not suspect ischemia Interventions of: -IV Tylenol, Toradol, Morphine- improvement of pain, arranged OBGYN follow-up by consult with Dr. Burton. ED Course/Assessment/Plan: 38-year-old female presents in significant right lower quadrant abdominal pain, laboratory studies are unremarkable and CT shows an unconcerning sized ovarian cyst is likely the source of her pain, I discussed with CLEANING AND MAINTENANCE WORKER and they are concerned for torsion especially with labs not supporting any ischemic pathology like a negative lactate. D-dimer was mildly elevated but I did speak with the rad radiologist and there is a very well-visualized pelvic vasculature to the patient's prior DVTs in the groin area and there is no clot currently. Her pain was well-controlled I did provide oxycodone to go and arrange follow-up for her. Findings not consistent with appendicitis, TOA, ectopic , DVT, obstructive uropathy. Disposition of right ovarian cyst. Patient verbalized understanding of the plan and return to ED criteria and engaged in shared decision making. Medical Records Medical records reviewed: Yes I reviewed the patient's medical records. Imaging Data Radiologic Study: Attestation: I personally reviewed and interpreted this imaging study as follows: Imaging: CT Scan Radiologist's impression: Patient Name: Kayleigh Chapman Unit #: [id number] Loc: ER Ordering Provider: Status: [facility] ER Primary Care Provider: Vazquez Galvan Date of Exam: 12/01/23 Sex: F : 1985 Age: 38 Exam(s) Addendum created by Roly Padgett MD on 12/01/2023 8:01:59 PM EST: This case was discussed personally with Ender Benites at 8:00 PM EST on 12/01/2023. No DVT is seen in the common iliac, external iliac, common femoral, or visualized proximal superficial femoral veins bilaterally. 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 Hydronephrosis and prominent distension of the right renal pelvis are also seen on the comparison CT exam from April 30, 2023 although no ureterectasis is seen on the prior exam. Initial report created on 12/01/2023 7:49:25 PM EST: PROCEDURE INFORMATION: Exam: CT Abdomen And Pelvis With Contrast Exam date and time: 12/01/2023 7:10 PM Age: 38 years old Clinical indication: Abdominal pain; Localized; Right lower quadrant (rlq); Prior surgery; Surgery date: 6+ months; Surgery type: Back surgery 2018. ; Patient HX: R groin pain; ? Toa vs appy vs pyelo. History dvt, mild elev d-dimer, venous phase TECHNIQUE: Imaging protocol: Computed tomography of the abdomen and pelvis with contrast. Radiation optimization: All CT scans at this facility use at least one of these dose optimization techniques: automated exposure control; mA and/or kV adjustment per patient size (includes targeted exams where dose is matched to clinical indication); or iterative reconstruction. Contrast material: OMNIPAQUE 350; Contrast volume: 100 ml; Contrast route: INTRAVENOUS (IV); COMPARISON: CT ABDOMEN PELVIS W 04/30/2023 4:54 PM FINDINGS: Liver: Small indeterminate hypoattenuating hepatic lesion, incompletely characterized but most likely a region of focal fatty infiltration or hemangioma. Gallbladder and bile ducts: Gallbladder partially collapsed. No calcified gallstones seen. No biliary dilatation. Pancreas: Normal appearing pancreas. Spleen: Normal appearing spleen. Adrenal glands: Normal appearing adrenal glands. Kidneys and ureters: Normal-appearing left kidney. No left-sided hydronephrosis. Normal-appearing right kidney. Mild right-sided hydronephrosis with prominent distension of the renal pelvis and mild proximal ureterectasis to the level where the ureter crosses between the uterus in the right pelvic sidewall. Distal right ureter obscured. Stomach and bowel: No oral contrast. Stomach partially decompressed. No small bowel dilatation to suggest obstruction. Normal-appearing colon. No evidence of diverticulitis or colitis. Appendix: Faintly demonstrated normal ghost-like appendix. Intraperitoneal space: Trace fluid in the deep pelvis. No free air. Vasculature: Normal caliber abdominal aorta. Lymph nodes: No pathologically enlarged mesenteric, retroperitoneal, or pelvic sidewall lymph nodes. Urinary bladder: Normal appearing urinary bladder. Reproductive: Normal-sized uterus. T-shaped intrauterine device in-situ. Ovaries partially obscured but normal in size. 1.9 cm x 1.8 cm peripherally enhancing right ovarian corpus luteum. Bones/joints: No acute fracture seen among the bones of the abdomen or pelvis. Prior lumbar surgery with posterior decompression, L4-S1 fusion, and fusion across the right sacroiliac joint. Soft tissues: Mild diastasis recti. No significant ventral or inguinal hernia. IMPRESSION: 1. 1.9 cm x 1.8 cm peripherally enhancing right ovarian corpus luteum. Trace pelvic fluid. 2. Mild right-sided hydronephrosis with distension of the renal pelvis and mild prominence of the proximal ureter to the level where the ureter crosses between the uterus in the right pelvic sidewall. Low-grade obstructive physiology caused by ureteral compression could have this appearance; however, the ureter is completely obscured through the pelvis. An alternative cause of obstructive uropathy is not excluded. Dictated and Authenticated by: Roly Padgett MD. Ordering:LILLIAM Handley MD Lab Data Lab results reviewed: Yes I reviewed the patient's lab results. Labs: 12/01/23 17:29 Urine - Reflex from Ua Urine Culture - Pending Laboratory Tests Range/Units 12/01/23 12/01/23 12/01/23 16:53 17:29 18:14 WBC (4.4-10.8) 10^3/uL 5.43 RBC (3.93-5.22) 10^6/uL 3.80 L Hgb (11.2-15.7) g/dL 11.1 L Hct (36.0-46.0) % 34.4 L MCV (80-95) fL 91 MCH (27.0-33.0) pg 29.2 MCHC (32.0-36.0) % 32.3 RDW (11.7-14.6) % 14.6 Plt Count (130-400) 10^3/uL 217 MPV (8.0-11.0) fL 9.2 Immature Gran % 0.4 Neutrophils % 54.0 Lymphocytes % 30.0 Monocytes % 8.1 Eosinophils % 6.6 Basophils % 0.9 Nucleated RBC % (0.0-0.3) % 0.0 Absolute Neutrophils (1.2-6.7) 10^3/uL 2.93 Absolute Lymphocytes (1.2-3.4) 10^3/uL 1.63 Absolute Monocytes (0.1-0.8) 10^3/uL 0.44 Absolute Eosinophils (0.0-0.7) 10^3/uL 0.36 Absolute Basophils (0.0-0.2) 10^3/uL 0.05 ESR (0-20) mm/hr 23 H D-Dimer (<500) ng/mlFEU 547 H VBG Lactate (0.6-1.4) mmol/L 0.8 Sodium (136-145) mmol/L 136 Potassium (3.5-5.1) mmol/L 3.6 Chloride (98-107) mmol/L 100 Carbon Dioxide (21.0-32.0) mmol/L 28.0 Anion Gap (3-11) mmol/L 8.0 BUN (7-18) mg/dL 8 Creatinine (0.55-1.02) mg/dL 0.8 Est GFR (CKD-EPI 2020) (mL/min/1.73m2) 95.46 Glucose (74-106) mg/dL 104 Calcium (8.5-10.1) mg/dL 8.7 Total Bilirubin (0.2-1.0) mg/dL 0.2 AST (15-37) U/L 22 ALT (14-59) U/L 27 Alkaline Phosphatase (46-116) U/L 53 C-Reactive Protein (<or=0.5) mg/dL < 0.50 Total Protein (6.4-8.2) g/dL 7.7 Albumin (3.4-5.0) g/dL 3.6 Lipase (16-77) U/L 27 Procalcitonin ng/mL < 0.1 Serum HCG, Qual Cancelled Urine Color (Yellow) Yellow Urine Clarity (Clear) Clear Urine pH (5-8) 7.0 Ur Specific Brandon (1.005-1.025) 1.015 Urine Protein (Negative) mg/dL Negative Urine Ketones (Negative) mg/dL Negative Urine Blood (Negative) Negative Urine Nitrite (Negative) Negative Urine Bilirubin (Negative) Negative Urine Urobilinogen (Up to 0.2) mg/dL 0.2 Ur Leukocyte Esterase (Negative) Trace H Urine RBC (0-2) HPF Negative Urine WBC (0-5) HPF 0-2 Ur Epithelial Cells (Negative) HPF Rare Urine Crystals (Negative) HPF Negative Urine Bacteria (Negative) HPF Few Urine Casts (Negative) LPF Negative Urine Mucus (Negative) Negative Ur Culture Indicated? Yes Urine Glucose (Negative) mg/dL Negative Urine HCG, Qual Range/Units 12/01/23 18:53 WBC (4.4-10.8) 10^3/uL RBC (3.93-5.22) 10^6/uL Hgb (11.2-15.7) g/dL Hct (36.0-46.0) % MCV (80-95) fL MCH (27.0-33.0) pg MCHC (32.0-36.0) % RDW (11.7-14.6) % Plt Count (130-400) 10^3/uL MPV (8.0-11.0) fL Immature Gran % Neutrophils % Lymphocytes % Monocytes % Eosinophils % Basophils % Nucleated RBC % (0.0-0.3) % Absolute Neutrophils (1.2-6.7) 10^3/uL Absolute Lymphocytes (1.2-3.4) 10^3/uL Absolute Monocytes (0.1-0.8) 10^3/uL Absolute Eosinophils (0.0-0.7) 10^3/uL Absolute Basophils (0.0-0.2) 10^3/uL ESR (0-20) mm/hr D-Dimer (<500) ng/mlFEU VBG Lactate (0.6-1.4) mmol/L Sodium (136-145) mmol/L Potassium (3.5-5.1) mmol/L Chloride (98-107) mmol/L Carbon Dioxide (21.0-32.0) mmol/L Anion Gap (3-11) mmol/L BUN (7-18) mg/dL Creatinine (0.55-1.02) mg/dL Est GFR (CKD-EPI 2020) (mL/min/1.73m2) Glucose (74-106) mg/dL Calcium (8.5-10.1) mg/dL Total Bilirubin (0.2-1.0) mg/dL AST (15-37) U/L ALT (14-59) U/L Alkaline Phosphatase (46-116) U/L C-Reactive Protein (<or=0.5) mg/dL Total Protein (6.4-8.2) g/dL Albumin (3.4-5.0) g/dL Lipase (16-77) U/L Procalcitonin ng/mL Serum HCG, Qual Urine Color (Yellow) Urine Clarity (Clear) Urine pH (5-8) Ur Specific Brandon (1.005-1.025) Urine Protein (Negative) mg/dL Urine Ketones (Negative) mg/dL Urine Blood (Negative) Urine Nitrite (Negative) Urine Bilirubin (Negative) Urine Urobilinogen (Up to 0.2) mg/dL Ur Leukocyte Esterase (Negative) Urine RBC (0-2) HPF Urine WBC (0-5) HPF Ur Epithelial Cells (Negative) HPF Urine Crystals (Negative) HPF Urine Bacteria (Negative) HPF Urine Casts (Negative) LPF Urine Mucus (Negative) Ur Culture Indicated? Urine Glucose (Negative) mg/dL Urine HCG, Qual Cancelled Quality:SDOH Health Related Social Needs: No Data to Display PFSH All Active Problems (Updated 12/01/23 @ 20:38 by EDIS Blake) Right ovarian cyst (Acute) Ovarian cyst (Acute) COVID (Acute) Pain (Acute) Anxiety (Chronic) Chronic back pain greater than 3 months duration (Chronic) Headache (Acute) Hypoxia (Acute) Anemia (Chronic) Anticoagulated on Coumadin (Acute) Medical History DVT (deep venous thrombosis) Social History Smoking/Tobacco Use Status: Never Smoking risk assessment performed?: Yes Alcohol Intake: current Alcohol Intake frequency: a few times a month Drug use: Occasionally Substance use type: marijuana Do you feel safe at home: Yes Do you feel safe in your relationship?: Yes Discharge Plan Disposition Patient Disposition: Home Discharge Details Clinical Impression: Right ovarian cyst Primary Care Provider: Vazquez Galvan ED Provider: Ender Snow Home Meds and New Rx's Prescriptions: Continued gabapentin 600 mg Tablet 600 mg PO TID duloxetine 60 mg Capsule,Delayed Release(Dr/Ec) 60 mg PO DAILY Hold Instructions: Pt Stopped/Never Started oxycodone 20 mg Tablet 20 mg PO Q4H PRN Discharge Instructions Instructions: Ovarian Cyst (ED) Additional Instructions: You were seen in the emergency department for your right lower abdominal pain, there is a small 2 cm ovarian cyst on CT scan, your kidney findings are chronic, there is no clots in any of the pelvic vasculature, you have no signs of significant infection on your blood work and your kidney function is normal at this time. There is little concern for any DVTs, no concern for ovarian torsion, I did contact the CLEANING AND MAINTENANCE WORKER's at the [facility] and they will follow-up with you for your ovarian cyst including performing ultrasound of this area. Please use therapeutic dosing of Tylenol (acetamenophen) & Advil (ibuprofen) in an alternating fashion as follows: Take 1000mg of Tylenol every 6 hours without missing doses- that is 4 times per day. Prison in between the Tylenol dosings, take 400-600mg of Advil also on a 6 hour schedule, that is also 4 times per day. The daily maximum dosing of Tylenol is 4000mg, and the daily maximum dosing of Advil is 2400mg. This is safe to do for weeks. Please note that some common cold medications & prescription pain medications may contain acetamenophen and you need to read OTC drug labels and factor that in to maximum daily dosings. Please use the to go oxycodone that I provided for breakthrough pain. Please return to the ER for any severe increase in pain especially with fever, nausea vomiting. Referrals: [facility] [Provider Group] Vazquez Galvan [Primary Care Provider] -
[2023-12-01] MEDS: Ketorolac 15 MG/ML VIAL IVP (16:58)
[2023-12-01] MEDS: ACETAMINOPHEN 1,000 MG/100 ML BTL 400 MG IVPB (16:59)
[2023-12-01 17:00] LABS: Lactate 0.8 mmol/L (0.6-1.4)
[2023-12-01 17:03] LABS: Abs Immature Grans 0.02 10^3/uL (0.0-0.06); Absolute Basophil Count 0.05 10^3/uL (0.0-0.2); Absolute Eosinophil Count 0.36 10^3/uL (0.0-0.7); Absolute Lymphocyte Count 1.63 10^3/uL (1.2-3.4); Absolute Monocyte Count 0.44 10^3/uL (0.1-0.8); Absolute Neutrophil Count 2.93 10^3/uL (1.2-6.7); Basophils % 0.9; Eosinophils % 6.6; HCT 34.4 % (36.0-46.0); HGB 11.1 g/dL (11.2-15.7); Immature Grans % 0.4; MCH 29.2 pg (27.0-33.0); MCHC 32.3 % (32.0-36.0); MCV 91 fL (80-95); MPV 9.2 fL (8.0-11.0); Monocytes % 8.1; Platelet Count 217 10^3/uL (130-400); RDW 14.6 % (11.7-14.6); RDW-SD 48.8 fL; WBC 5.43 10^3/uL (4.4-10.8)
[2023-12-01 17:05] LABS: ESR 23 mm/hr (0-20)
[2023-12-01 17:17] LABS: ALT 27 U/L (14-59); AST 22 U/L (15-37); Albumin 3.6 g/dL (3.4-5.0); Alkaline Phosphatase 53 U/L (46-116); BUN 8 mg/dL (7-18); Bilirubin, Total 0.2 mg/dL (0.2-1.0); C-Reactive Protein < 0.50 mg/dL (<or=0.5); CREATININE 0.8 mg/dL (0.55-1.02); Calcium 8.7 mg/dL (8.5-10.1); Chloride 100 mmol/L (98-107); Estimated GFR 95.46 (mL/min/1.73m2); Glucose 104 mg/dL (74-106); Lipase 27 U/L (16-77); Potassium 3.6 mmol/L (3.5-5.1); Sodium 136 mmol/L (136-145); Total Protein 7.7 g/dL (6.4-8.2)
[2023-12-01 17:32] LABS: D-Dimer 547 ng/mlFEU (<500)
--- NOTE | 2023-12-01 17:45 | DI.CT_ITS ---
Exam(s) CT ABDOMEN PELVIS W EXAM: CT ABDOMEN PELVIS W CLINICAL HISTORY: R groin pain; ?TOA vs appy vs pyelo. TECHNIQUE: Imaging Protocol: Axial computed tomography images with coronal and sagittal reformatted images were created and reviewed CONTRAST MATERIAL: Intravenous: Omnipaque 350 Contrast volume:100 ml Oral: / no COMPARISON: CT CT ABDOMEN PELVIS W from 04/30/2023 FINDINGS: ABDOMEN and PELVIS: Lung Bases: No acute findings. Liver: Normal density. No measurable mass. Gallbladder and biliary tract: No radiodense calculus or dilation. Pancreas: Normal density. No abnormal calcifications or inflammatory process. No evidence of mass. Spleen: Normal. Kidneys: Prominent right extrarenal pelvis is again noted. The proximal ureter is dilated down to th e level of the uterus. The ureter is not visible distal to this level. No obstructing stone seen. Nephrograms are symmetric. Normal size, contour and axis. No suspicious masses seen. Adrenal glands: No masses seen. Vasculature: Abdominal aorta non-dilated. Soft tissues: Unremarkable. Bladder: No gross wall thickening. No calculi.No focal mass. Bowel: Large quantity of stool in right and transverse colon. No obstruction. No bowel wall thicke ana. Appendix normal. Peritoneal cavity: No ascites. No focal collection or mesenteric inflammatory response. Bones: Hardware it an lower lumbar spine. Mild scoliosis. Reproductive organs: Uterus enlarged, measuring 12.7 x 5.6 by 8.3 cm. No focal fibroids visible. Ov evita normal. Involuting follicle right ovary. IUD. Lymph nodes: Unremarkable. IMPRESSION:: Prominence of the right renal pelvis is similar to the prior exam. Nephrograms are sym metric. Large quantity of stool in the right and transverse colon. No evidence of obstruction. RADIATION DOSE DELIVERED: 1,202.55mGy.cm Total DLP DATA REPOSITORY: All CT scans at this facility are submitted to the National Radiology Data Registry (NRDR) Dose Index Registry (DIR) with the [employer] (A[employer]). RADIATION OPTIMIZATION: All CT scans at this facility use at least one of these dose optimization te chniques: automated exposure control; mA and/or kV adjustment per patient size (includes targeted exa ms where dose is matched to clinical indication); or iterative reconstruction.
[2023-12-01 17:51] LABS: Procalcitonin < 0.1 ng/mL
[2023-12-01 18:37] LABS: Bilirubin Negative (Negative); Blood Negative (Negative); Clarity Clear (Clear); Glucose Negative (Negative); Ketones Negative (Negative); Leukocyte Esterase Trace (Negative); Nitrite Negative (Negative); Specific Gravity 1.015 (1.005-1.025); Urobilinogen 0.2 mg/dL (Up to 0.2)
[2023-12-01 18:46] LABS: Bacteria Few HPF (Negative); C & S Indicated? Yes; Casts Negative LPF (Negative); Crystals Negative HPF (Negative); Epithelial Cells Rare HPF (Negative); Mucus Negative (Negative); RBC Negative HPF (0-2); WBC 0-2 HPF (0-5)
[2023-12-01] MEDS: Omnipaque 350 MG/ML 100 ML BTL IJ (19:03)
[2023-12-01] MEDS: Normal Saline Flush 10 ML SYR IVP (19:03)
[2023-12-01] MEDS: Normal Saline - Diluent 50 ML VIAL IJ (19:04)
--- NOTE | 2023-12-01 19:50 | DI.VRAD_ITS ---
Addendum created by Roly Padgett MD on 12/01/2023 8:01:59 PM EST: This case was discussed personally with Ender Benites at 8:00 PM EST on 12/01/2023. No DVT is seen in the common iliac, external iliac, common femoral, or visualized proximal superficial femoral veins bilaterally. 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 Hydronephrosis and prominent distension of the right renal pelvis are also seen on the comparison CT exam from April 30, 2023 although no ureterectasis is seen on the prior exam. Initial report created on 12/01/2023 7:49:25 PM EST: PROCEDURE INFORMATION: Exam: CT Abdomen And Pelvis With Contrast Exam date and time: 12/01/2023 7:10 PM Age: 38 years old Clinical indication: Abdominal pain; Localized; Right lower quadrant (rlq); Prior surgery; Surgery date: 6+ months; Surgery type: Back surgery 2018. ; Patient HX: R groin pain; ? Toa vs appy vs pyelo. History dvt, mild elev d-dimer, venous phase TECHNIQUE: Imaging protocol: Computed tomography of the abdomen and pelvis with contrast. Radiation optimization: All CT scans at this facility use at least one of these dose optimization techniques: automated exposure control; mA and/or kV adjustment per patient size (includes targeted exams where dose is matched to clinical indication); or iterative reconstruction. Contrast material: OMNIPAQUE 350; Contrast volume: 100 ml; Contrast route: INTRAVENOUS (IV); COMPARISON: CT ABDOMEN PELVIS W 04/30/2023 4:54 PM FINDINGS: Liver: Small indeterminate hypoattenuating hepatic lesion, incompletely characterized but most likely a region of focal fatty infiltration or hemangioma. Gallbladder and bile ducts: Gallbladder partially collapsed. No calcified gallstones seen. No biliary dilatation. Pancreas: Normal appearing pancreas. Spleen: Normal appearing spleen. Adrenal glands: Normal appearing adrenal glands. Kidneys and ureters: Normal-appearing left kidney. No left-sided hydronephrosis. Normal-appearing right kidney. Mild right-sided hydronephrosis with prominent distension of the renal pelvis and mild proximal ureterectasis to the level where the ureter crosses between the uterus in the right pelvic sidewall. Distal right ureter obscured. Stomach and bowel: No oral contrast. Stomach partially decompressed. No small bowel dilatation to suggest obstruction. Normal-appearing colon. No evidence of diverticulitis or colitis. Appendix: Faintly demonstrated normal ghost-like appendix. Intraperitoneal space: Trace fluid in the deep pelvis. No free air. Vasculature: Normal caliber abdominal aorta. Lymph nodes: No pathologically enlarged mesenteric, retroperitoneal, or pelvic sidewall lymph nodes. Urinary bladder: Normal appearing urinary bladder. Reproductive: Normal-sized uterus. T-shaped intrauterine device in-situ. Ovaries partially obscured but normal in size. 1.9 cm x 1.8 cm peripherally enhancing right ovarian corpus luteum. Bones/joints: No acute fracture seen among the bones of the abdomen or pelvis. Prior lumbar surgery with posterior decompression, L4-S1 fusion, and fusion across the right sacroiliac joint. Soft tissues: Mild diastasis recti. No significant ventral or inguinal hernia. IMPRESSION: 1. 1.9 cm x 1.8 cm peripherally enhancing right ovarian corpus luteum. Trace pelvic fluid. 2. Mild right-sided hydronephrosis with distension of the renal pelvis and mild prominence of the proximal ureter to the level where the ureter crosses between the uterus in the right pelvic sidewall. Low-grade obstructive physiology caused by ureteral compression could have this appearance; however, the ureter is completely obscured through the pelvis. An alternative cause of obstructive uropathy is not excluded. Dictated and Authenticated by: Roly Padgett MD. Ordering:LILLIAM Handley MD
[2023-12-01] MEDS: MORPHine 4 MG/ML SYR IVP (20:23)
== END 2023-12-01 21:11 | disposition home or self-care (01) ==
PROVIDERS: Emergency Provider Physician Assistant; PCP Family Medicine
DX: R10.31 Right lower quadrant pain (principal); N83.201 Unspecified ovarian cyst, right side; Z86.718 Personal history of other venous thrombosis and embolism
CPT/HCPCS: 80053; 81025; 83690; 84145; 85652; 96374; 96375; 99285; 74177; 81003; 81015; 83605; 84703; 85025; 85379; 86140; 87086; 99283; J0131; J1885; J2270; J3490

== ENCOUNTER 2023-12-23 11:56 | Emergency (ER) | payer OTHER, SELFPAY ==
[2023-12-23] VITALS (33 sets, daily range): BP systolic 103–134; BP diastolic 58–73; PULSE 76–100; RESP 14–18; TEMP 36.4–36.9; O2SAT 90–100
--- NOTE | 2023-12-23 12:04 | ED.GENADUL_ITS ---
Discharge Plan Disposition Patient Disposition: Home Condition: Stable Discharge Details Clinical Impression: Constipation due to pain medication Primary Care Provider: Vazquez Galvan ED Provider: Candice Leyva Home Meds and New Rx's Prescriptions: Continued gabapentin 600 mg Tablet 600 mg PO TID duloxetine 60 mg Capsule,Delayed Release(Dr/Ec) 60 mg PO DAILY Hold Instructions: Pt Stopped/Never Started oxycodone 20 mg Tablet 20 mg PO Q4H PRN cyclobenzaprine 5 mg tablet 5 mg PO QHS Discharge Instructions Instructions: Constipation (ED) Additional Instructions: Discussed bowel medication regimen to include medications for opioid induced constipation with your primary care provider. Drink at least 6 to 8 glasses of water daily to stay well-hydrated Referrals: Vazquez Galvan [Primary Care Provider] - [facility] General Mode of arrival: ambulatory . Date/Time Provider Initiated Documentation: 12/23/23 12:01 . Limitations to Documentation: no limitations . Information obtained by: patient . HPI Narrative: presents with ongoing right groin pain, no fever or chills. worsening now and radiating down left groin and low back. using miralax and suppositories with some effect. some stool overnight, loose. positive nausea and vomiting. chronic opioid use for chronic low back pain. shes concerned for DVT. Related Data Home Medications Medication Instructions Recorded Confirmed duloxetine 60 mg capsule,delayed 60 mg PO DAILY 06/17/22 12/23/23 release gabapentin 600 mg tablet 600 mg PO TID 06/17/22 12/23/23 oxycodone 20 mg tablet 20 mg PO Q4H PRN 06/17/22 12/23/23 cyclobenzaprine 5 mg tablet 5 mg PO QHS 12/23/23 12/23/23 Allergies Allergy/AdvReac Type Severity Reaction Status Date / Time No Known Allergies Allergy Unverified 12/23/23 12:03 General Stated Complaint: Abd Prob NARESH: 3 Review of Systems All systems reviewed & are unremarkable except as noted in HPI and below Exam Const General: cooperative, acute distress (crying but can redirect with questions) mild and well hydrated (tears) Nutritional Appearance: obese Orientation: alert, awake and oriented x3 HENMT Head: normal to inspection, normocephalic and atraumatic Face and sinus: normal facial exam Mouth: oral mucosae normal Neck Neck: normal visual inspection and full ROM Chest Chest: normal inspection of the chest Resp Effort & Inspection: normal respiratory effort and able to speak in complete sentences Cardio Rate: regular rate Rhythm: regular rhythm and other (strong pedal pulse on left) GI Inspection: normal to inspection and obesity Palpation: soft and tender in the LLQ and in the RLQ Skin General skin exam: no rashes or lesions noted Neuro General: patient alert, patient awake, patient oriented x3 and no focal motor deficits Extrem General: normal to inspection, full ROM and edema (reports at baseline, good strong pedal pulse, foot warm to touch, good cap ) Laterality: bilateral Course Vital Signs Vital signs: Vital Signs Temperature 36.9 C 12/23/23 11:59 Pulse 100 H 12/23/23 11:59 Respiratory Rate 18 12/23/23 11:59 Blood Pressure 134/71 12/23/23 11:59 Pulse Oximetry 96 12/23/23 11:59 Temperature 36.9 C 12/23/23 11:59 Pulse 100 H 12/23/23 11:59 Respiratory Rate 18 12/23/23 11:59 Blood Pressure 134/71 12/23/23 11:59 Pulse Oximetry 96 12/23/23 11:59 Medical Decision Making patient presents with recurrent right groin pain which she states radiates to left groin now and low back. differentials include opioid induced constipation, ovarian cyst, less likely bowel perforation, doubt DVT or pancreatitis. will establish IV , give one liter of NS, droperidol 2.5 mg IVP, toradol 30 mg IVP, and relistor 12 mg subcu. will recheck cbc and cmp. Labs reviewed and unremarkable. Patient did have results from relistor and feels her symptoms are substantially subsiding and improved. No further imaging or testing at this time patient is stable and ready for discharge to home. Medical Records Medical records reviewed: Yes I reviewed the patient's medical records. Medical records narrative: CT scan from dec 01, 2023 Exam(s) a CT:CT abdomen & pelvis w Exam(s) CT ABDOMEN PELVIS W EXAM: CT ABDOMEN PELVIS W CLINICAL HISTORY: R groin pain; ?TOA vs appy vs pyelo. TECHNIQUE: Imaging Protocol: Axial computed tomography images with coronal and sagittal reformatted images were created and reviewed CONTRAST MATERIAL: Intravenous: Omnipaque 350 Contrast volume:100 ml Oral: / no COMPARISON: CT CT ABDOMEN PELVIS W from 04/30/2023 FINDINGS: ABDOMEN and PELVIS: Lung Bases: No acute findings. Liver: Normal density. No measurable mass. Gallbladder and biliary tract: No radiodense calculus or dilation. Pancreas: Normal density. No abnormal calcifications or inflammatory process. No evidence of mass. Spleen: Normal. Kidneys: Prominent right extrarenal pelvis is again noted. The proximal ureter is dilated down to the level of the uterus. The ureter is not visible distal to this level. No obstructing stone seen. Nephrograms are symmetric. Normal size, contour and axis. No suspicious masses seen. Adrenal glands: No masses seen. Vasculature: Abdominal aorta non-dilated. Soft tissues: Unremarkable. Bladder: No gross wall thickening. No calculi.No focal mass. Bowel: Large quantity of stool in right and transverse colon. No obstruction. No bowel wall thickening. Appendix normal. Peritoneal cavity: No ascites. No focal collection or mesenteric inflammatory response. Bones: Hardware it an lower lumbar spine. Mild scoliosis. Reproductive organs: Uterus enlarged, measuring 12.7 x 5.6 by 8.3 cm. No focal fibroids visible. Ovaries normal. Involuting follicle right ovary. IUD. Lymph nodes: Unremarkable. IMPRESSION:: Prominence of the right renal pelvis is similar to the prior exam. Nephrograms are symmetric. Large quantity of stool in the right and transverse colon. No evidence of obstruction. Lab Data Lab results reviewed: Yes I reviewed the patient's lab results. Labs: Laboratory Results - last 24 hr 12/23/23 12:20 WBC 4.21 L RBC 3.54 L Hgb 10.4 L Hct 32.8 L MCV 93 MCH 29.4 MCHC 31.7 L RDW 14.9 H Plt Count 277 MPV 9.0 Immature Gran % 0.2 Neutrophils % 52.3 Lymphocytes % 29.2 Monocytes % 12.4 Eosinophils % 5.2 Basophils % 0.7 Nucleated RBC % 0.0 Absolute Neutrophils 2.20 Absolute Lymphocytes 1.23 Absolute Monocytes 0.52 Absolute Eosinophils 0.22 Absolute Basophils 0.03 Sodium 138 Potassium 4.5 Chloride 103 Carbon Dioxide 27.1 Anion Gap 7.9 BUN 5 L Creatinine 0.7 Est GFR (CKD-EPI 2020) 112.05 Glucose 107 H Calcium 8.3 L Total Bilirubin 0.2 AST 14 L ALT 20 Alkaline Phosphatase 68 Total Protein 7.0 Albumin 3.4 Quality:SDOH Health Related Social Needs: No Data to Display PFSH All Active Problems (Updated 12/23/23 @ 14:12 by Candice Leyva NP) Constipation due to pain medication (Acute) Right ovarian cyst (Acute) Ovarian cyst (Acute) COVID (Acute) Pain (Acute) Anxiety (Chronic) Chronic back pain greater than 3 months duration (Chronic) Headache (Acute) Hypoxia (Acute) Anemia (Chronic) Anticoagulated on Coumadin (Acute) Medical History DVT (deep venous thrombosis) Social History Smoking/Tobacco Use Status: Never Smoking risk assessment performed?: Yes Alcohol Intake: current Alcohol Intake frequency: a few times a month Drug use: Occasionally Substance use type: marijuana Housing: house Do you feel safe at home: Yes Do you feel safe in your relationship?: Yes
[2023-12-23 12:26] LABS: Abs Immature Grans 0.01 10^3/uL (0.0-0.06); Absolute Basophil Count 0.03 10^3/uL (0.0-0.2); Absolute Eosinophil Count 0.22 10^3/uL (0.0-0.7); Absolute Lymphocyte Count 1.23 10^3/uL (1.2-3.4); Absolute Monocyte Count 0.52 10^3/uL (0.1-0.8); Basophils % 0.7; Eosinophils % 5.2; HCT 32.8 % (36.0-46.0); HGB 10.4 g/dL (11.2-15.7); Immature Grans % 0.2; Lymphocytes % 29.2; MCH 29.4 pg (27.0-33.0); MCHC 31.7 % (32.0-36.0); MCV 93 fL (80-95); Monocytes % 12.4; Neutrophils % 52.3; Platelet Count 277 10^3/uL (130-400); RBC 3.54 10^6/uL (3.93-5.22); RDW 14.9 % (11.7-14.6); WBC 4.21 10^3/uL (4.4-10.8)
[2023-12-23] MEDS: Ketorolac 30 MG/ML VIAL IVP (12:33)
[2023-12-23] MEDS: Droperidol 5 MG/2 ML VIAL 2.5 MG IVP (12:33)
[2023-12-23] MEDS: Methylnaltrexone 12 MG/0.6 ML VIAL SC (12:33)
[2023-12-23] MEDS: Normal Saline 1,000 ML 1000 ML IV (12:38)
[2023-12-23 13:10] LABS: ALT 20 U/L (14-59); AST 14 U/L (15-37); Albumin 3.4 g/dL (3.4-5.0); Alkaline Phosphatase 68 U/L (46-116); Anion Gap 7.9 mmol/L (3-11); BUN 5 mg/dL (7-18); Bilirubin, Total 0.2 mg/dL (0.2-1.0); CO2 27.1 mmol/L (21.0-32.0); CREATININE 0.7 mg/dL (0.55-1.02); Calcium 8.3 mg/dL (8.5-10.1); Chloride 103 mmol/L (98-107); Estimated GFR 112.05 (mL/min/1.73m2); Glucose 107 mg/dL (74-106); Potassium 4.5 mmol/L (3.5-5.1); Sodium 138 mmol/L (136-145)
== END 2023-12-23 14:27 | disposition home or self-care (01) ==
PROVIDERS: Emergency Provider Nurse Practitioner Acute Care; PCP Family Medicine
DX: K59.03 Drug induced constipation (principal); Z79.891 Long term (current) use of opiate analgesic
CPT/HCPCS: 80053; 96361; 96372; 96374; 96375; 99284; 85025; 99283; J1790; J1885; J2212